=== PATIENT | female | born 1930 | race Caucasian/White ===

== ENCOUNTER 2016-10-31 09:07 | Emergency (ER) | payer MEDICARE ==
--- NOTE | 2016-10-31 09:27 | ED.PDOC ---
History of Present Illness - General Chief Complaint: Syncope/Near Syncope Stated Complaint: Passed out while cooking breakfast Time Seen by Provider: 10/31/16 09:17 Source: patient, family, EMS Exam Limitations: no limitations - History of Present Illness Initial Comments: Patient was at home cooking breakfast when she just passed out. She fell backwards and hit her head on the floor. Family reports she was unconscious for about 2 minutes. She woke up suddenly and has been acting like herself since. Despite patient reporting generalized joint pain for the past 2-3 days she denies any pain or injury from fall. She and family report she has not been feeling well or eating well for the past few days. Mostly with complaints of joint pain. EMS reports BP 110's while laying but dropped into the 70's when she sat up. Timing/Prior Episodes: remote history - She has passed out like this before with each of her strokes, she reports 3 prior strokes. Precipitating Factors: none Context: standing Episode Description: 2 minutes Loss of Consciousness: prolonged (minutes) Current Symptoms: back to normal, injury Allergies/Adverse Reactions: Allergies NO KNOWN ALLERGY Allergy (Verified 11/25/15 11:01) Home Medications: Ambulatory Orders Aspirin [Baby Aspirin] 81 mg PO QD 07/23/14 Fenofibrate [Tricor] 48 mg PO DAILY 07/23/14 Furosemide [Lasix] 20 mg PO PRN PRN 07/23/14 Levetiracetam [Keppra] 500 mg PO BEDTIME 07/23/14 Metoprolol Succinate [Metoprolol Succinate ER] 25 mg PO QAM #30 tab 07/23/14 Ramipril 2.5 mg PO QAM #30 cap 07/23/14 amLODIPine BESYLATE [Norvasc] 5 mg PO DAILY 07/23/14 Buspirone HCl 10 mg PO DAILY 09/14/15 Cyanocobalamin [B-12] 2,500 mcg PO DAILY 09/14/15 Lubiprostone [Amitiza] 24 mcg PO BID 09/14/15 Mirtazapine [Remeron] 15 mg PO BEDTIME 09/14/15 Omeprazole 20 mg PO DAILY 09/14/15 Acetaminophen [Tylenol] 500 mg PO PRN 12/02/15 Albuterol Sulfate Nebs [Proventil Nebs] 2.5 mg INH PRN 12/02/15 Alprazolam [Alprazolam Odt] 0.25 mg PO PRN 12/02/15 Calcium Carbonate 600 mg PO DAILY 12/02/15 Clonidine HCl 0.1 mg PO PRN 12/02/15 Desvenlafaxine Succinate [Pristiq] 50 mg PO DAILY 12/02/15 HYDROcodone 10MG/APAP 325MG [[place] 10/325] 1 tab PO PRN 12/02/15 HYDROcodone 5MG/APAP 325MG [[place] 5/325] 1 tab PO PRN 12/02/15 Loratadine [Claritin] 10 mg PO DAILY 12/02/15 Meclizine HCl [Motion Sickness Relief] 25 mg PO PRN 12/02/15 Lthrwddf-Sfkzklairu-Zhlwzzxzz [Neosporin] 1 applic TOP PRN 12/02/15 [place]-3 Fatty Acids [Fish Oil] 1,000 mg PO DAILY 12/02/15 Potassium Chloride [Micro-K] 10 meq PO DAILY 12/02/15 Promethazine HCl 25 mg PO PRN 12/02/15 Promethazine W/Codeine [Promethazine/Codeine 6.25-10 mg/5Ml] 1 syp PO PRN Tramadol HCl 50 mg PO PRN 12/02/15 Review of Systems - Review of Systems Constitutional: States: malaise. Denies: chills, diaphoresis, fever, weakness EENTM: States: no symptoms reported Respiratory: States: no symptoms reported Cardiology: States: no symptoms reported Gastrointestinal/Abdominal: States: no symptoms reported Genitourinary: States: no symptoms reported Musculoskeletal: States: joint pain, neck pain. Denies: back pain, muscle pain , muscle stiffness Skin: States: no symptoms reported Neurological: States: no symptoms reported. Denies: headache, pre-existing deficit, tingling Endocrine: States: no symptoms reported Hematologic/Lymphatic: States: no symptoms reported Past Medical History (General) - Patient Medical History Hx Seizures: No Hx Stroke: Yes Hx Dementia: No Hx Asthma: No Hx of COPD: No Hx Cardiac Disorders: Yes Hx Congestive Heart Failure: No Hx Pacemaker: No Hx Hypertension: Yes Hx Thyroid Disease: No Hx Diabetes: Yes - FSBS 94 Hx Gastroesophageal Reflux: Yes Hx Renal Disease: No Hx Cancer: No Hx of HIV: No Hx Hepatitis C: No Hx MRSA: No - Vaccination History Hx Tetanus, Diphtheria Vaccination: Yes Hx Influenza Vaccination: No Hx Pneumococcal Vaccination: No - Social History Hx Tobacco Use: No Hx Chewing Tobacco Use: No Hx Alcohol Use: No Hx Substance Use: No Hx Substance Use Treatment: No Hx Depression: No Hx Physical Abuse: No Hx Emotional Abuse: No Hx Suspected Abuse: No - Female History Patient : No Physical Exam - Physical Exam General Appearance: Alert, Comfortable, Frail, No apparent distress Neck: non-tender, full range of motion, supple, normal inspection Cardiovascular/Respiratory: regular rate, rhythm, no M/R/G, normal peripheral pulses, no JVD, normal breath sounds, no respiratory distress Gastrointestinal/Abdominal: normal bowel sounds, non tender, soft, no organomegaly, no pulsatile mass Extremity: normal range of motion, non-tender, normal inspection 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 Awaiting urinalysis. 10/31/16 13:[address] and lab results with patient and her sons. Will d/o home with instructions to drink 2 boosts/day and drink 2L of water/day - Results/Orders Results/Orders: Laboratory Last Values WBC 8.8 K/mm3 (4.8-10.8) 10/31/16 09:33 RBC 3.47 M/mm3 (4.20-5.40) L 10/31/16 09:33 Hgb 9.7 gm/dL (12.0-16.0) L 10/31/16 09:33 Hct 30.1 % (36.0-47.0) L 10/31/16 09:33 MCV 86.7 fl (81.0-99.0) 10/31/16 09:33 MCH 27.9 pg (27.0-31.0) 10/31/16 09:33 MCHC 32.3 g/dL (33.0-37.0) L 10/31/16 09:33 RDW 13.1 % (11.5-14.5) 10/31/16 09:33 Plt Count 280 K/mm3 (130-400) 10/31/16 09:33 MPV 7.7 fl (7.40-10.4) 10/31/16 09:33 Absolute Neuts (auto) 6.40 K/uL (1.8-6.8) 10/31/16 09:33 Absolute Lymphs (auto) 1.40 K/uL (1.0-3.4) 10/31/16 09:33 Absolute Monos (auto) 0.80 K/uL (0.2-0.8) 10/31/16 09:33 Absolute Eos (auto) 0.10 K/uL (0.0-0.4) 10/31/16 09:33 Absolute Basos (auto) 0.10 K/uL (0.0-0.1) 10/31/16 09:33 Neutrophils % 72.8 % (42.0-78.0) 10/31/16 09:33 Lymphocytes % 16.4 % (20.0-50.0) L 10/31/16 09:33 Monocytes % 9.3 % (2.0-9.0) H 10/31/16 09:33 Eosinophils % 0.8 % (1.0-5.0) L 10/31/16 09:33 Basophils % 0.7 % (0.0-2.0) 10/31/16 09:33 Sodium 135 mmol/L (135-145) 10/31/16 09:33 Potassium 4.3 mmol/L (3.6-5.0) 10/31/16 09:33 Chloride 109 mmol/L (101-111) 10/31/16 09:33 Carbon Dioxide 20 mmol/L (21-31) L 10/31/16 09:33 Anion Gap 10.3 (12-18) L 10/31/16 09:33 BUN 72 mg/dL (7-18) H 10/31/16 09:33 Creatinine 1.78 mg/dL (0.6-1.3) H 10/31/16 09:33 BUN/Creatinine Ratio 40.4 (10-20) H 10/31/16 09:33 Random Glucose 130 mg/dL (70-105) H 10/31/16 09:33 Serum Osmolality 293.0 mOsm/L (275-295) 10/31/16 09:33 Calcium 8.8 mg/dL (8.4-10.2) 01/15/17 09:33 Total Bilirubin 0.4 mg/dL (0.2-1.0) 10/31/16 09:33 AST 15 IU/L (10-42) 10/31/16 09:33 ALT 9 IU/L (10-60) L 10/31/16 09:33 Alkaline Phosphatase 61 IU/L (42-121) 10/31/16 09:33 Creatine Kinase 24 IU/L (26-140) L 10/31/16 09:33 CK-MB (CK-2) 1.2 ng/mL (0.0-4.4) 10/31/16 09:33 Troponin I < 0.02 ng/mL (0.01-0.05) 10/31/16 09:33 Serum Total Protein 6.6 gm/dL (6.4-8.2) 10/31/16 09:33 Albumin 2.8 g/dl (3.2-5.5) L 10/31/16 09:33 Globulin 3.8 gm/dL (2.3-3.5) H 10/31/16 09:33 Albumin/Globulin Ratio 0.7 (1.1-1.9) L 10/31/16 09:33 UA - +protien and trace blood, o/w nl - EKG/XRAY/CT CT Ordered: Yes - No acute changes per radiologist Departure - Departure Clinical Impression: Syncope and collapse, Dehydration, Fall at home Time of Disposition: 13:15 Disposition: Discharge to Home or Self Care Condition: Good Departure Forms: ED Discharge - Pt. Copy, Patient Portal Self Enrollment Instructions: DI for Dehydration -- Adult, DI for Syncope in Adults (Fainting) Diet: resume usual diet Activity: ambulate only with walker Referrals: Marcel Aden MD [Primary Care Provider] - 1-2 Days Home Medications: Ambulatory Orders Aspirin [Baby Aspirin] 81 mg PO QD 07/23/14 Fenofibrate [Tricor] 48 mg PO DAILY 07/23/14 Furosemide [Lasix] 20 mg PO PRN PRN 07/23/14 Levetiracetam [Keppra] 500 mg PO BEDTIME 07/23/14 Metoprolol Succinate [Metoprolol Succinate ER] 25 mg PO QAM #30 tab 07/23/14 Ramipril 2.5 mg PO QAM #30 cap 07/23/14 amLODIPine BESYLATE [Norvasc] 5 mg PO DAILY 07/23/14 Buspirone HCl 10 mg PO DAILY 09/14/15 Cyanocobalamin [B-12] 2,500 mcg PO DAILY 09/14/15 Lubiprostone [Amitiza] 24 mcg PO BID 09/14/15 Mirtazapine [Remeron] 15 mg PO BEDTIME 09/14/15 Omeprazole 20 mg PO DAILY 09/14/15 Acetaminophen [Tylenol] 500 mg PO PRN 12/02/15 Albuterol Sulfate Nebs [Proventil Nebs] 2.5 mg INH PRN 12/02/15 Alprazolam [Alprazolam Odt] 0.25 mg PO PRN 12/02/15 Calcium Carbonate 600 mg PO DAILY 12/02/15 Clonidine HCl 0.1 mg PO PRN 12/02/15 Desvenlafaxine Succinate [Pristiq] 50 mg PO DAILY 12/02/15 HYDROcodone 10MG/APAP 325MG [[place] 10/325] 1 tab PO PRN 12/02/15 HYDROcodone 5MG/APAP 325MG [[place] 5/325] 1 tab PO PRN 12/02/15 Loratadine [Claritin] 10 mg PO DAILY 12/02/15 Meclizine HCl [Motion Sickness Relief] 25 mg PO PRN 12/02/15 Hkxyqltb-Woygwmqrqk-Okwklbjae [Neosporin] 1 applic TOP PRN 12/02/15 [place]-3 Fatty Acids [Fish Oil] 1,000 mg PO DAILY 12/02/15 Potassium Chloride [Micro-K] 10 meq PO DAILY 12/02/15 Promethazine HCl 25 mg PO PRN 12/02/15 Promethazine W/Codeine [Promethazine/Codeine 6.25-10 mg/5Ml] 1 syp PO PRN Tramadol HCl 50 mg PO PRN 12/02/15 Additional Instructions: Increase fluid and food intake. 2 boost or Ensure/day. 2L of water/day.
[2016-10-31 09:30] VITALS: TEMP 97.5
--- NOTE | 2016-10-31 09:57 | CT ---
EXAM DESCRIPTION: CT HEAD WITHOUT INTRAVENOUS CONTRAST CLINICAL HISTORY: Fall and trauma to the head. COMPARISON: . TECHNIQUE: CT of the head was performed without intravenous contrast. FINDINGS: There is no intra or extra-axial hemorrhage,fluid collection, midline shift, mass effect or acute focal infarct. There is prominence of the sylvian fissures and the cortical sulci reflecting age related volume loss. There is periventricular and deep white matter low attenuation, most likely related to small vessel white matter ischemic disease. Acute on chronic ischemic changes are better assessed on an MRI, if such a suspicion exists clinically. The ventricular system is normal for patient's age, position and configuration. Benign intracranial vascular calcifications are seen. Visualized mastoid air cells are unremarkable. The paranasal sinuses show changes of mild chronic sinusitis. There is no visualization of calvarial or skull base fractures. IMPRESSION: There are no acute intracranial findings. Chronic and age related involutional changes are seen. Electronically signed by: Aaron Bueno MD 10/31/2016 09:55
[2016-10-31] MEDS ORDERED: SODIUM CHLORIDE 0.9% 1000ML 1,000 ML ONE (10:50)
[2016-10-31] MEDS ORDERED: SODIUM CHLORIDE 0.9% 1000ML 1,000 ML IVS ONE ×2 (10:50→10:51)
[2016-10-31 12:42] VITALS: O2SAT 95
[2016-10-31 13:26] VITALS: BP 130/92
== END 2016-10-31 13:26 | disposition home or self-care (01) ==
LOC: ER 09:07
DX: E86.0 Dehydration (principal); R55 Syncope and collapse; M25.50 Pain in unspecified joint; I10 Essential (primary) hypertension; E11.9 Type 2 diabetes mellitus without complications; K21.9 Gastro-esophageal reflux disease without esophagitis; Z86.73 Personal history of transient ischemic attack (TIA), and cerebral infarction without residual deficits; Z79.82 Long term (current) use of aspirin; Z79.899 Other long term (current) drug therapy
CPT/HCPCS: 36415; 70450; 80053; 81001; 82550; 82553; 84484; 85025; J7030

== ENCOUNTER → 2017-01-04 | Outpatient (CLI) | payer MEDICARE | LOC: GMAB 11:25 | PROVIDERS: ATTEND Family Medicine | DX: M15.0 Primary generalized (osteo)arthritis (principal); D50.8 Other iron deficiency anemias; E53.8 Deficiency of other specified B group vitamins ==

== ENCOUNTER → 2017-01-10 | Outpatient (CLI) | payer MEDICARE ==
--- NOTE | 2017-01-10 12:52 | CT ---
EXAM DESCRIPTION: Cervical Spine CLINICAL HISTORY: 86 years Female, CERVICAL RADICULOPATHY COMPARISON: None. TECHNIQUE: Volumetric noncontrasted CT of the cervical spine was performed. The data was reformatted for interpretation. FINDINGS: The dens is unremarkable. AP alignment is unremarkable. There is degenerative disc disease at all levels. No vertebral body height in the malady. Extensive vascular calcifications noted within the bilateral carotid arteries. There is medialization of the right carotid artery. It is located posterior to the oropharynx. C2-C3: Facet degeneration noted. No spinal canal or neuroforaminal narrowing. C3-C4: There is bilateral facet degeneration and uncovertebral joint hypertrophy. There is moderate right and mild left neuroforaminal narrowing. The midline diameter of the spinal canal is adequate measuring 1 cm in diameter. C4-5: Moderate left and mild right neuroforaminal narrowing from facet and uncovertebral joint hypertrophy. Broad-based posterior disc osteophyte complex noted. The midline diameter of the spinal canal is mildly narrowed at 9 mm. C5-6: Severe bilateral neuroforaminal narrowing. Broad-based posterior disc osteophyte complex noted. The midline diameter of the spinal canal is reduced to 8.4 mm. C6-C7: Moderate bilateral neuroforaminal narrowing, left greater than right. Broad-based posterior disc osteophyte complex. The midline diameter of the spinal canal is adequate at 1 cm. C7-T1: No spinal canal or neuroforaminal narrowing. IMPRESSION: The level degenerative change with mild spinal canal narrowing at C4-5 and C5-6. Borderline normal spinal canal is at C3-4 and C6-7. Multilevel neuroforaminal narrowing noted is pronounced bilaterally at C5-6. This could result in bilateral C6 radiculopathies if the patient is symptomatic. There is atherosclerotic disease noted within bilateral carotid bulbs. Electronically signed by: Brendan Shoemaker MD 01/10/2017 12:51 PM CDT
== END | disposition home or self-care (01) ==
LOC: CT 09:50
PROVIDERS: ATTEND Family Medicine
DX: M50.13 Cervical disc disorder with radiculopathy, cervicothoracic region (principal)

== ENCOUNTER → 2017-02-08 | Outpatient (CLI) | payer MEDICARE | LOC: BFHH 16:48 | PROVIDERS: ATTEND Internal Medicine Medical Oncology | DX: I13.0 Hypertensive heart and chronic kidney disease with heart failure and stage 1 through stage 4 chronic kidney disease, or unspecified chronic kidney disease (principal); E11.22 Type 2 diabetes mellitus with diabetic chronic kidney disease; N18.3 Chronic kidney disease, stage 3 (moderate) ==

== ENCOUNTER → 2017-03-24 | Outpatient (CLI) | payer MEDICARE | END | disposition home or self-care (01) | LOC: BFHH 14:08 | PROVIDERS: ATTEND Family Medicine | DX: R35.0 Frequency of micturition (principal); R30.0 Dysuria ==

== ENCOUNTER → 2017-04-07 | Outpatient (CLI) | payer MEDICARE | END | disposition home or self-care (01) | LOC: GMAB 16:36 | PROVIDERS: ATTEND Family Medicine | DX: D50.9 Iron deficiency anemia, unspecified (principal); M79.1 Myalgia ==

== ENCOUNTER → 2017-05-05 | Outpatient (CLI) | payer MEDICARE | LOC: GMAB 17:33 | PROVIDERS: ATTEND Family Medicine | DX: M79.1 Myalgia (principal) ==

== ENCOUNTER → 2017-07-07 | Outpatient (CLI) | payer MEDICARE | END | disposition home or self-care (01) | LOC: GMAB 15:23 | PROVIDERS: ATTEND Family Medicine | DX: E11.22 Type 2 diabetes mellitus with diabetic chronic kidney disease (principal); M35.3 Polymyalgia rheumatica; N18.3 Chronic kidney disease, stage 3 (moderate) ==

== ENCOUNTER → 2017-07-12 | Outpatient (CLI) | payer MEDICARE | END | disposition home or self-care (01) | LOC: GMAB 16:34 | PROVIDERS: ATTEND Family Medicine | DX: M35.3 Polymyalgia rheumatica (principal); E11.65 Type 2 diabetes mellitus with hyperglycemia ==

== ENCOUNTER → 2017-11-24 | Outpatient (CLI) | payer MEDICARE | LOC: GMAB 19:18 | PROVIDERS: ATTEND Family Medicine | DX: D64.9 Anemia, unspecified (principal); E53.8 Deficiency of other specified B group vitamins; M35.3 Polymyalgia rheumatica ==

== ENCOUNTER 2017-12-05 20:38 | Inpatient (IN) | payer MEDICARE ==
--- NOTE | 2017-12-05 21:09 | ED.PDOC ---
History of Present Illness - General Chief Complaint: Cardiovascular Problem Stated Complaint: leg swelling Time Seen by Provider: 12/05/17 20:59 Source: patient, family Exam Limitations: no limitations - History of Present Illness Timing/Duration: other - 2-3 days Severity: moderate Improving Factors: nothing Associated Symptoms: other - pain in L leg Allergies/Adverse Reactions: Allergies NO KNOWN ALLERGY Allergy (Verified 11/25/15 11:01) Home Medications: Ambulatory Orders Aspirin [Baby Aspirin] 81 mg PO QD 07/23/14 Fenofibrate [Tricor] 48 mg PO DAILY 07/23/14 Furosemide [Lasix] 20 mg PO PRN PRN 07/23/14 Levetiracetam [Keppra] 500 mg PO BEDTIME 07/23/14 Metoprolol Succinate [Metoprolol Succinate ER] 25 mg PO QAM #30 tab 07/23/14 Ramipril 2.5 mg PO QAM #30 cap 07/23/14 amLODIPine BESYLATE [Norvasc] 5 mg PO DAILY 07/23/14 Buspirone HCl 10 mg PO DAILY 09/14/15 Cyanocobalamin [B-12] 2,500 mcg PO DAILY 09/14/15 Lubiprostone [Amitiza] 24 mcg PO BID 09/14/15 Mirtazapine [Remeron] 15 mg PO BEDTIME 09/14/15 Omeprazole 20 mg PO DAILY 09/14/15 Acetaminophen [Tylenol] 500 mg PO PRN 12/02/15 Albuterol Sulfate Nebs [Proventil Nebs] 2.5 mg INH PRN 12/02/15 Alprazolam [Alprazolam Odt] 0.25 mg PO PRN 12/02/15 Calcium Carbonate 600 mg PO DAILY 12/02/15 Clonidine HCl 0.1 mg PO PRN 12/02/15 Desvenlafaxine Succinate [Pristiq] 50 mg PO DAILY 12/02/15 HYDROcodone 10MG/APAP 325MG [[place] 10/325] 1 tab PO PRN 12/02/15 HYDROcodone 5MG/APAP 325MG [[place] 5/325] 1 tab PO PRN 12/02/15 Loratadine [Claritin] 10 mg PO DAILY 12/02/15 Meclizine HCl [Motion Sickness Relief] 25 mg PO PRN 12/02/15 Oljuyend-Krplbbrjtz-Lduisbltb [Neosporin] 1 applic TOP PRN 12/02/15 [place]-3 Fatty Acids [Fish Oil] 1,000 mg PO DAILY 12/02/15 Potassium Chloride [Micro-K] 10 meq PO DAILY 12/02/15 Promethazine HCl 25 mg PO PRN 12/02/15 Promethazine W/Codeine [Promethazine/Codeine 6.25-10 mg/5Ml] 1 syp PO PRN Tramadol HCl 50 mg PO PRN 12/02/15 Review of Systems - Review of Systems Constitutional: Denies: chills, fever, weakness EENTM: Denies: nose congestion, throat pain Respiratory: Denies: cough, orthopnea, short of breath Cardiology: States: edema. Denies: chest pain, syncope Gastrointestinal/Abdominal: Denies: abdominal pain, nausea, vomiting Genitourinary: Denies: dysuria Musculoskeletal: States: joint pain, muscle pain Skin: States: change in color - L leg is red Neurological: Denies: headache, numbness, paresthesia Endocrine: Denies: no symptoms reported Hematologic/Lymphatic: Denies: no symptoms reported Past Medical History (General) - Patient Medical History Hx Seizures: No Hx Stroke: Yes Hx Dementia: No Hx Asthma: No Hx of COPD: No Hx Cardiac Disorders: Yes Hx Congestive Heart Failure: No Hx Pacemaker: Yes Hx Hypertension: Yes Hx Thyroid Disease: No Hx Diabetes: Yes - years ago Hx Gastroesophageal Reflux: Yes Hx Renal Disease: No Hx Cancer: No Hx of HIV: No Hx Hepatitis C: No Hx MRSA: No Surgical History: cholecystectomy, Hysterectomy - Vaccination History Hx Tetanus, Diphtheria Vaccination: Yes Hx Influenza Vaccination: Yes Hx Pneumococcal Vaccination: No - Social History Hx Tobacco Use: No Hx Chewing Tobacco Use: No Hx Alcohol Use: No Hx Substance Use: No Hx Substance Use Treatment: No Hx Depression: No Hx Physical Abuse: No Hx Emotional Abuse: No Hx Suspected Abuse: No - Female History Patient is a Female of Child Bearing Age (10 -59 yrs old): No Patient : No - Triage Comment ED Triage Comment: redness, tendernous to left leg. Family Medical History - Family History Mother Living Status: Hx Family Cancer: Yes Physical Exam - Physical Exam General Appearance: Alert, Other - Mild distress Eye Exam: bilateral normal Ears, Nose, Throat: normal ENT inspection, normal pharynx Neck: full range of motion, normal inspection Respiratory: normal breath sounds, no respiratory distress Cardiovascular/Chest: regular rate, rhythm Gastrointestinal/Abdominal: normal bowel sounds, non tender, soft Extremity: swelling - L leg has 3+ edema that extends to distal thigh, red and tender with increased heat Skin Exam: warm/dry Departure - Departure Clinical Impression: Cellulitis Qualifiers: Site of cellulitis: extremity Site of cellulitis of extremity: lower extremity Laterality: left Qualified Code(s): L03.116 - Cellulitis of left lower limb Anemia Qualifiers: Anemia type: unspecified type Qualified Code(s): D64.9 - Anemia, unspecified Disposition: Admit Patient Condition: Fair Departure Forms: ED Discharge - Pt. Copy, Patient Portal Self Enrollment Instructions: DI for Chest Pain Referrals: Marcel Aden MD [Primary Care Provider] - 1-2 Weeks Home Medications: Ambulatory Orders Aspirin [Baby Aspirin] 81 mg PO QD 07/23/14 Fenofibrate [Tricor] 48 mg PO DAILY 07/23/14 Furosemide [Lasix] 20 mg PO PRN PRN 07/23/14 Levetiracetam [Keppra] 500 mg PO BEDTIME 07/23/14 Metoprolol Succinate [Metoprolol Succinate ER] 25 mg PO QAM #30 tab 07/23/14 Ramipril 2.5 mg PO QAM #30 cap 07/23/14 amLODIPine BESYLATE [Norvasc] 5 mg PO DAILY 07/23/14 Buspirone HCl 10 mg PO DAILY 09/14/15 Cyanocobalamin [B-12] 2,500 mcg PO DAILY 09/14/15 Lubiprostone [Amitiza] 24 mcg PO BID 09/14/15 Mirtazapine [Remeron] 15 mg PO BEDTIME 09/14/15 Omeprazole 20 mg PO DAILY 09/14/15 Acetaminophen [Tylenol] 500 mg PO PRN 12/02/15 Albuterol Sulfate Nebs [Proventil Nebs] 2.5 mg INH PRN 12/02/15 Alprazolam [Alprazolam Odt] 0.25 mg PO PRN 12/02/15 Calcium Carbonate 600 mg PO DAILY 12/02/15 Clonidine HCl 0.1 mg PO PRN 12/02/15 Desvenlafaxine Succinate [Pristiq] 50 mg PO DAILY 12/02/15 HYDROcodone 10MG/APAP 325MG [[place] 10/325] 1 tab PO PRN 12/02/15 HYDROcodone 5MG/APAP 325MG [[place] 5/325] 1 tab PO PRN 12/02/15 Loratadine [Claritin] 10 mg PO DAILY 12/02/15 Meclizine HCl [Motion Sickness Relief] 25 mg PO PRN 12/02/15 Sitjxghd-Efllzmpbea-Pgvgtqkvz [Neosporin] 1 applic TOP PRN 12/02/15 [place]-3 Fatty Acids [Fish Oil] 1,000 mg PO DAILY 12/02/15 Potassium Chloride [Micro-K] 10 meq PO DAILY 12/02/15 Promethazine HCl 25 mg PO PRN 12/02/15 Promethazine W/Codeine [Promethazine/Codeine 6.25-10 mg/5Ml] 1 syp PO PRN Tramadol HCl 50 mg PO PRN 12/02/15
--- NOTE | 2017-12-05 22:04 | US ---
EXAM DESCRIPTION: Venous,Lower Extremity LT CLINICAL HISTORY: swollen L Leg COMPARISON: None. TECHNIQUE: Grayscale, color Doppler, and spectral Doppler imaging of the lower extremity venous system. FINDINGS: Normal compressibility and flow identified in the left common femoral, superficial femoral, popliteal, and proximal calf veins. No echogenic thrombus identified. No soft tissue abnormalities. Left phasicity in the common femoral veins. Edema in the subcutaneous soft tissues. IMPRESSION: No evidence of left lower extremity DVT. Electronically signed by: Pradeep Christiansen 12/05/2017 10:03 PM DECORATOR HAND
[2017-12-05] MEDS ORDERED: VANCOMYCIN HCL INJ 1,000 MG in SODIUM CHLORIDE 0.9% 250ML 250 ML IVPB ONE (22:09)
[2017-12-05] MEDS ORDERED: SODIUM CHLORIDE 0.9% 250ML 250 ML ONE (22:13)
[2017-12-05] MEDS ORDERED: VANCOMYCIN HCL INJ 1,000 MG VIAL IVPB ONE (22:13)
[2017-12-05] MEDS ORDERED: LEVALBUTEROL NEBS 1.25 MG/3 ML VIAL INH PRN (23:04)
[2017-12-05] MEDS ORDERED: SODIUM CHLORIDE 0.9% (FLUSH) 10 ML SYG IV PRN (23:04)
[2017-12-05] MEDS ORDERED: MAGNESIUM HYDROXIDE 30 ML UD PO PRN (23:12)
[2017-12-05] MEDS ORDERED: ENOXAPARIN SODIUM 40 MG/0.4 ML SYG SUBCU SCH (23:30)
[2017-12-05] MEDS ORDERED: VANCOMYCIN PER PHARMACY INJ SCH (23:30)
[2017-12-05] MEDS ORDERED: amLODIPine BESYLATE 5 MG TAB PO SCH (23:30)
[2017-12-05] MEDS: IPRATROPIUM/ALBUTEROL 3 ML VIAL INH SCH (23:53)
--- NOTE | 2017-12-06 00:01 | RAD ---
EXAM DESCRIPTION: Chest,1 View CLINICAL HISTORY: leukocytosos COMPARISON: 09/14/2015 FINDINGS: Single frontal view of the chest. Left-sided pacemaker. Cardiomegaly. Atherosclerotic calcification aortic arch. Pulmonary vascular congestion. No consolidation, pneumothorax, or pleural effusion. No acute osseous abnormalities. Upper abdominal soft tissues are unremarkable. IMPRESSION: 1. Cardiomegaly with pulmonary vascular congestion. Electronically signed by: Pradeep Christiansen 12/06/2017 12:00 AM [facility]
[2017-12-06] MEDS: busPIRone HCL 5 MG TAB PO SCH ×2 (00:14→20:31)
[2017-12-06] MEDS: levETIRAcetam 250 MG TAB PO SCH ×2 (00:15→20:31)
[2017-12-06] MEDS: IV SET AND CAP CHANGE INJ INJ SCH (00:15)
[2017-12-06] MEDS: HYDROcodone 7.5MG/APAP 325MG 1 EA TAB PO PRN ×3 (00:17→18:20)
[2017-12-06] MEDS: SODIUM CHLORIDE 0.9% 1000ML 1,000 ML IVS PRN ×2 (00:19→20:21)
[2017-12-06] MEDS: OMEPRAZOLE CAP 20 MG CAP PO SCH (06:24)
[2017-12-06] MEDS ORDERED: ACETAMINOPHEN 325 MG TAB PO ONE (07:04)
[2017-12-06] MEDS ORDERED: diphenhydrAMINE HCL 25 MG CAP PO ONE (07:06)
[2017-12-06] MEDS: IPRATROPIUM/ALBUTEROL 3 ML VIAL INH SCH (08:28)
[2017-12-06] MEDS ORDERED: RAMIPRIL 2.5 MG CAP PO SCH ×2 (09:00→11:38)
[2017-12-06] MEDS ORDERED: SODIUM CHLORIDE 0.9% 500ML 500 ML ONE (09:58)
[2017-12-06] MEDS ORDERED: diphenhydrAMINE HCL 25 MG CAP ONE (10:02)
[2017-12-06] MEDS: ASPIRIN (CHEWABLE) 81 MG TAB PO SCH (10:10)
[2017-12-06] MEDS: CHLORHEXIDINE GLUC 4% 15ML 45 ML, WATER FOR IRRIGATION 1,000 ML TOP SCH ×4 (11:00→20:32)
[2017-12-06] MEDS ORDERED: traMADol HCL 50 MG TAB PO PRN (11:29)
[2017-12-06] MEDS ORDERED: ASPIRIN (CHEWABLE) 81 MG TAB PO SCH (11:30)
--- NOTE | 2017-12-06 11:32 | HP ---
HISTORY OF PRESENT ILLNESS: This 87-year-old, white female is admitted to the hospital from the Emergency Room because of significant pain, swelling, erythema and apparent infection in the left lower extremity. She has had intermittent swelling in her legs in the past for which she takes an occasional Lasix to assist with that edema state. Her problem this time started and worsened over the last three or four days starting shortly after being bitten by one of her cats while feeding the cat. It has done this before. The bite was on the dorsum of her left foot. Her left lower extremity including the calf up to the thigh is swollen, erythematous, very tender especially in the though region to palpation. There is no drainage and the site of the cat bite appears to be fairly well closed over and healed with eschar with no drainage noted. The patient is followed closely by Dr. Aden in the clinic. She is on multiple medications, may of which have been adjusted and required specialized review in order to get to the basics of her current medication program. The patient is admitted to the hospital because of a white count of 22,000 with associated significant infection and inability to walk on it because of pain within the tissues especially of her thigh. She was started initially in the Emergency Room on vancomycin anticipating a staph or strep infection. It was only at the time of the acquisition of the history of present illness that it was determined that there could be an underlying cat bite element which has necessitated the change to Unasyn medication dosings. PAST SURGICAL HISTORY: 1. Appendectomy. 2. Gallbladder removal. 3. Uterus removal. CURRENT MEDICATIONS: Please refer to nursing notes for a list of verified medicines. ALLERGIES: NONE KNOWN. FAMILY HISTORY: Positive for diabetes, coronary artery disease, lung disease, cancer, strokes. SOCIAL HISTORY: The patient currently lives with her son and has never smoked or drank alcoholic beverages. 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 REVIEW OF SYSTEMS: GENERAL: Weight is stable. No significant fever, but she has been feeling somewhat chilled recently. HEENT: Hearing and vision appear to be fairly unchanged though her vision is decreased from where it used to be. She has had a history of polymyalgia rheumatica in the past for which she takes prednisone. LUNGS: Occasional shortness of breath upon exertion. CARDIOVASCULAR: No palpitations or chest pains. GASTROINTESTINAL: Appetite is very picky and she admits to not eating very well. Diminished albumin level is indicative of this. No blood in the stools. GENITOURINARY: No dysuria. EXTREMITIES: Significant left lower extremity edema with erythema possibly related to an infectious condition with cellulitis from a cat bite. NEUROLOGIC: No focal neurological deficits. The patient is having difficulty ambulating because of pain in the left thigh and leg. PHYSICAL EXAMINATION: VITAL SIGNS: Afebrile. Blood pressure 129/36. Pulse oximetry 98% on room air. Weight 61.7 kg on the bed scale. GENERAL: The patient is fairly alert and awake. She is complaining of a lot of neck pain and leg pain when she puts weight on it. HEENT: Unremarkable. NECK: Supple. LUNGS: Diminished breath sounds, but otherwise clear. CARDIOVASCULAR: Heart tones are regular. ABDOMEN: Slightly distended, fairly good and active bowel tones. No organomegaly or masses noted. EXTREMITIES: Left leg is edematous and swollen to extend up to the groin with increased tenderness of the thigh compared to the calf. Ultrasound of the lower extremity failed to show any significant DVT presence. Somewhat diminished range of motion and she has been told that her knees have lost a lot of their cartilage, thereby a lot of arthritic symptoms. NEUROLOGIC: No focal neurological deficits other than weakness. She is otherwise awake and alert, cooperative and communicative. LABORATORY: White count is elevated at 22,000 with 96% neutrophils, hemoglobin 7.5 with a normocytic/normochromic presentation. INR 1.36. Chemistries show sodium 131, potassium 4.2, BUN significantly elevated over baseline at 57, creatinine 2, glucose 203. Liver enzymes normal. Beta natriuretic peptide 573. Albumin 2.4. Urinalysis pending. Blood cultures obtained. Lower extremity ultrasound exam shows no evidence of left lower extremity DVT at this time. Chest x-ray does show enlarged heart with some pulmonary vascular congestion component. ASSESSMENT: 1. Significant swelling with erythema and pain, left lower extremity, suggesting cellulitis. No evidence of a deep venous thrombosis at this time. Possible cat bite infection, left foot with extension up the leg, requiring parenteral therapy. 2. Significant leukocytosis with left shift suggesting significant body reaction to the underlying infection. 3. History of hypertension. 4. Gastroesophageal reflux disease. 5. History of polymyalgia rheumatica on prednisone, low dose. 6. Anemia with hemoglobin only 7.5 with a normocytic/normochromic pattern, possibly related to the underlying renal failure. 7. Hypoalbuminemia related to poor nutrition. 8. Chronic renal insufficiency with acute exacerbation. 9. Hyperglycemia. PLAN: The patient is admitted to the hospital to have the left lower extremity elevated. We will cleanse with diluted Hibiclens. Started on vancomycin in the Emergency Room per pharmacy protocol. C-reactive protein pending. Home medications to be approached. Continue on SCDs and Lovenox prophylaxis. Reevaluation in the morning. #[id number] [facility]
--- NOTE | 2017-12-06 13:24 | PN ---
DATE: 12/06/17 SUBJECTIVE: The patient is resting with increased neck pain primarily because she has been sleeping with her head leaning precariously off of a pillow. She is otherwise awake and alert. Discussed condition with family who are present. Significant input regarding the cat bite on her left foot. Possibility of cat bite infection will require ongoing outpatient therapy when stable and in the meantime, we will stop the vancomycin and switch to Unasyn 1.5 gram q.12h. per renal dosing because of that possibility. OBJECTIVE: VITAL SIGNS: Afebrile. Blood pressure 138/85. Pulse oximetry 93% on room air. LUNGS: Clear. HEART: Regular. ABDOMEN: Soft. LABORATORY: Repeat hemoglobin is down to 7 with white count down to 18,800 with 87% neutrophils. Chemistries show potassium 3.9, BUN still elevated at 56 while creatinine has dropped to 1.85. Glucose 127. C-reactive protein elevated at 12.4. Urinalysis shows proteinuria. Blood cultures are negative at this time. Blood culture pending. ASSESSMENT: 1. Significant swelling with erythema and pain, left lower extremity, suggesting cellulitis. No evidence of a deep venous thrombosis at this time. Possible cat bite infection, left foot with extension up the leg, requiring parenteral therapy. 2. Significant leukocytosis with left shift suggesting significant body reaction to the underlying infection. 3. History of hypertension. 4. Gastroesophageal reflux disease. 5. History of polymyalgia rheumatica on prednisone, low dose. 6. Anemia with hemoglobin only 7.5 with a normocytic/normochromic pattern, possibly related to the underlying renal failure. 7. Hypoalbuminemia related to poor nutrition. 8. Chronic renal insufficiency with acute exacerbation. 9. Hyperglycemia. 10. Worsening anemia, normocytic/normochromic, suggesting chronic illness, yet at the point where it is interfering with her ability to rehabilitate and to increase her activity level so that she will safely return home. Two units of packed red blood cells to be infused with followup afterward. PLAN: Continue with the transfusion and continue with Unasyn instead of the vancomycin. Continue close observation and treatment to respond as the patient responds to treatment. #[id number] [facility]
[2017-12-06] MEDS ORDERED: AMPICILLIN & SULBACTAM SODIUM 1.5 GM VIAL ONE ×2 (15:27→19:41)
[2017-12-06] MEDS ORDERED: SODIUM CHL 0.9% 50ML MIN-BAG+ 50 ML IVPB ONE ×2 (15:27→19:41)
[2017-12-06] MEDS: METOPROLOL SUCCINATE XL 25 MG TAB PO SCH (15:39)
[2017-12-06] MEDS: FUROSEMIDE 40 MG TAB PO SCH (15:49)
[2017-12-06] MEDS: predniSONE 5 MG TAB PO SCH (15:59)
[2017-12-06] MEDS: AMPICILLIN & SULBACTAM SODIUM 1.5 GM in SODIUM CHL 0.9% 50ML MIN-BAG+ 50 ML IVPB SCH ×2 (16:01→23:39)
--- NOTE | 2017-12-06 17:19 | US ---
EXAM DESCRIPTION: Carotid Duplex CLINICAL HISTORY: hx of carotid stenosis COMPARISON: None Available. TECHNIQUE: Carotid Doppler ultrasound FINDINGS: Right Submitted images show soft plaque and minimal calcified plaque in the right common carotid artery. Calcified plaque in the upper right CCA and right carotid bulb is prominent. Moderate plaque at the origin of the right internal and external carotid arteries. Area measurements suggest 50% narrowing of the right ICA and 68% narrowing of the right carotid bulb. The following flow velocities were obtained: Common carotid artery peak systolic flow velocity highest measurement is 118 cm/s. Internal carotid artery peak systolic flow velocity measurement is 77 cm/s. The right internal carotid to common carotid peak systolic flow velocity ratio 0.7 is normal. External carotid artery peak systolic flow velocity measures 92 cm/s. Flow in the right vertebral artery is recorded as retrograde. Left Submitted images show extensive arteriosclerotic calcified plaque in the left common carotid artery and at the left carotid bifurcation. Dense calcification of the left carotid bulb is seen. Positive color flow is seen within the vessels. Area calculation suggest 61% narrowing of the left ICA with 54% narrowing of the left carotid bulb. Left CCA in its mid cervical portion appears 80% narrowed. The following flow velocities were obtained: Common carotid artery peak systolic flow velocity measures 94.3 cm/s. Internal carotid artery peak systolic flow velocity measures 126 cm/s suggesting a 40-59% stenosis. The internal carotid to common carotid peak systolic flow velocity ratio 1.3 is within normal limits. External carotid artery peak systolic flow velocity 70 cm/s. Flow in the left vertebral artery is antegrade. IMPRESSION: Extensive arteriosclerotic plaque at the carotid bifurcations, left more than right. Flow velocity measurements indicate left ICA 40-59% stenosis. Retrograde flow in the right vertebral artery is recorded. Electronically signed by: Ricardo Hernandez MD 12/06/2017 5:18 PM [facility]
--- NOTE | 2017-12-06 19:04 | US ---
EXAM DESCRIPTION: Extremity,Lower LT Arteries CLINICAL HISTORY: cellulitis COMPARISON: None. FINDINGS: Duplex images of the arterial system of the left lower extremity were submitted. There is no elevation of the peak systolic velocity to suggest a hemodynamically significant stenosis. Dampened waveform is noted at the level of the distal dorsalis pedis artery which could be secondary to small vessel disease. There is subcutaneous edema. IMPRESSION: No elevation of the peak systolic velocity to suggest a hemodynamically significant stenosis. Dampened flow at the dorsalis pedis artery could be secondary to small vessel disease. Subcutaneous edema. Electronically signed by: Myles Arroyo MD 12/06/2017 7:03 PM [facility] Workstation: [id number]
[2017-12-06] MEDS ORDERED: ENOXAPARIN SODIUM 30 MG/0.3 ML SYG SUBCU ONE (19:42)
[2017-12-06] MEDS: ALPRAZolam 0.25 MG TAB PO SCH (20:31)
[2017-12-06] MEDS: ENOXAPARIN SODIUM 30 MG/0.3 ML SYG SUBCU SCH (23:38)
[2017-12-07] MEDS: OMEPRAZOLE CAP 20 MG CAP PO SCH (06:10)
[2017-12-07] MEDS: SODIUM CHLORIDE 0.9% 1000ML 1,000 ML IVS PRN ×2 (08:30→19:52)
[2017-12-07] MEDS: POTASSIUM CHLORIDE 10 MEQ TAB PO SCH (08:39)
[2017-12-07] MEDS: FUROSEMIDE 40 MG TAB PO SCH (08:40)
[2017-12-07] MEDS: ASPIRIN (CHEWABLE) 81 MG TAB PO SCH (08:40)
[2017-12-07] MEDS: RAMIPRIL 2.5 MG CAP PO SCH (08:40)
[2017-12-07] MEDS: METOPROLOL SUCCINATE XL 25 MG TAB PO SCH (08:40)
[2017-12-07] MEDS: predniSONE 5 MG TAB PO SCH (08:42)
[2017-12-07] MEDS: CHLORHEXIDINE GLUC 4% 15ML 45 ML, WATER FOR IRRIGATION 1,000 ML TOP SCH ×4 (08:44→20:41)
[2017-12-07] MEDS ORDERED: busPIRone HCL 5 MG TAB PO SCH (09:00)
[2017-12-07] MEDS ORDERED: AMPICILLIN & SULBACTAM SODIUM 1.5 GM VIAL ONE ×2 (11:31→19:18)
[2017-12-07] MEDS ORDERED: SODIUM CHL 0.9% 50ML MIN-BAG+ 50 ML IVPB ONE ×2 (11:32→19:19)
[2017-12-07] MEDS: AMPICILLIN & SULBACTAM SODIUM 1.5 GM in SODIUM CHL 0.9% 50ML MIN-BAG+ 50 ML IVPB SCH ×2 (11:35→23:30)
[2017-12-07] MEDS: HYDROcodone 5MG/APAP 325MG 1 EA TAB PO PRN ×2 (12:34→21:53)
[2017-12-07] MEDS: ALPRAZolam 0.25 MG TAB PO SCH (20:40)
[2017-12-07] MEDS: busPIRone HCL 5 MG TAB PO SCH (20:40)
[2017-12-07] MEDS: levETIRAcetam 250 MG TAB PO SCH (20:40)
--- NOTE | 2017-12-07 20:44 | PN ---
DATE: 12/07/17 SUPERVISING PHYSICIAN: Sandoval Bcuhanan M.D. SUBJECTIVE: The patient is resting in the bedside chair with her legs elevated. She notes that she still has some discomfort in the leg from her hip down but has had improvement since admission. She has been showing good response to treatment, currently on Unasyn. She remains afebrile. OBJECTIVE: VITAL SIGNS: Temperature 98.3, pulse 69, blood pressure 150/75, respirations 20, satting 96% on room air. I's and O's show a positive balance of 994 with 3995 in, 201 out. She has had 1 bowel movement. Weight is 62.7 kg. CHEST: Lungs are clear to auscultation. HEART: Regular rate and rhythm. ABDOMEN: Soft, non-tender. Positive bowel sounds. EXTREMITIES: Left lower extremity compared to the right shows some continued edema that is extending just below the knee now with some mild erythema. No obvious areas of drainage or consolidations or fluctuation. There is still notable tenderness over the entire leg. NEUROLOGIC: She is alert and oriented times three. LABORATORY: White count is down to 11,500, hemoglobin has improved to 10.8, hematocrit 32.9, platelet count 216,000. Differential shows a left shift. Chemistries show normal electrolytes with potassium 4.0, BUN 51, creatinine is down to 1.76, glucose 130, calcium 7.9. MICROBIOLOGY: Blood cultures remain negative at 24 hours. RADIOLOGY: She had a carotid artery and lower extremity Doppler study completed yesterday on admission which showed on the carotid artery study extensive atherosclerotic plaque in the carotid bifurcations on the left more than the right with flow velocities measurement indicating on the left ICA 40 to 59% stenosis with retro flow in the right vertebral artery. Lower extremity Doppler study of the arterial system showed no elevation of peak systolic velocity suggesting of extensive stenosis. There were dampened flow at the dorsalis pedis artery which could be secondary to small vessel disease with some cutaneous edema on the left. Again, the lower extremity Doppler study on the venous showed no evidence of lower left extremity DVT. ASSESSMENT: 1. Significant swelling with erythema and pain to the left lower extremity suggestive of cellulitis with no evidence of a deep venous thrombosis or arterial occlusion. Possible cellulitis is related to recent cat bite infection of the left foot with extension up the leg, requiring initiation of parenteral antibiotics showing good improvement with Unasyn. 2. Significant leukocytosis with left shift suggesting significant inflammatory reaction to an infectious process showing good response with initiation of parenteral antibiotics. 3. History of hypertension. 4. Gastroesophageal reflux disease. 5. History of polymyalgia rheumatica on prednisone, low dose. 6. Anemia with hemoglobin of 7.5 with a normocytic/normochromic pattern, possibly related to the underlying renal failure showing improvement with 2 units of packed red blood cells and no complications post transfusion. 7. Hypoalbuminemia related to poor nutritional intake. 8. Chronic renal insufficiency with acute exacerbation from hypovolemia showing improvement with treatment initiation. 9. Hyperglycemia. 10. Significant weakness secondary to normocytic/normochromic anemia both suggestive of chronic illness and secondary to renal insufficiency again showing good response with 2 units of packed red blood cells. PLAN: Will continue with Unasyn at this point and hold off on continuing with vancomycin as she has shown good response. Will anticipate hopefully being able to discharge tomorrow to continue with parenteral antibiotics to include Augmentin and additional doxycycline. Will plan to repeat laboratory studies in the morning if clinically stable. Again, the patient will hopefully be discharged to have close clinical followup with Dr. Aden in the outpatient setting. #[id number] [facility]
[2017-12-07] MEDS: ENOXAPARIN SODIUM 30 MG/0.3 ML SYG SUBCU SCH (23:30)
[2017-12-08] MEDS: OMEPRAZOLE CAP 20 MG CAP PO SCH (06:18)
[2017-12-08] MEDS: POTASSIUM CHLORIDE 10 MEQ TAB PO SCH (07:27)
[2017-12-08] MEDS: SODIUM CHLORIDE 0.9% 1000ML 1,000 ML IVS PRN ×2 (07:33→19:52)
[2017-12-08] MEDS: RAMIPRIL 2.5 MG CAP PO SCH (08:12)
[2017-12-08] MEDS: ASPIRIN (CHEWABLE) 81 MG TAB PO SCH (08:12)
[2017-12-08] MEDS: METOPROLOL SUCCINATE XL 25 MG TAB PO SCH (08:12)
[2017-12-08] MEDS: FUROSEMIDE 40 MG TAB PO SCH (08:13)
[2017-12-08] MEDS: predniSONE 5 MG TAB PO SCH (08:13)
[2017-12-08] MEDS: CHLORHEXIDINE GLUC 4% 15ML 45 ML, WATER FOR IRRIGATION 1,000 ML TOP SCH ×4 (08:20→20:31)
[2017-12-08] MEDS: HYDROcodone 5MG/APAP 325MG 1 EA TAB PO PRN ×3 (08:32→20:38)
[2017-12-08] MEDS ORDERED: AMPICILLIN & SULBACTAM SODIUM 1.5 GM VIAL ONE (11:15)
[2017-12-08] MEDS ORDERED: SODIUM CHL 0.9% 50ML MIN-BAG+ 50 ML IVPB ONE (11:15)
[2017-12-08] MEDS: AMPICILLIN & SULBACTAM SODIUM 1.5 GM in SODIUM CHL 0.9% 50ML MIN-BAG+ 50 ML IVPB SCH (11:17)
[2017-12-08] MEDS: DOXYCYCLINE HYCLATE CAP 100 MG CAP PO SCH ×2 (14:35→20:31)
[2017-12-08] MEDS ORDERED: AMOXICILLIN & POT CLAVULANATE 875 MG TAB ONE (16:17)
--- NOTE | 2017-12-08 19:00 | PN ---
DATE: 12/08/17 SUPERVISING PHYSICIAN: Sandoval Buchanan M.D. SUBJECTIVE: The patient has been able to ambulate with Physical Therapy for a short period of time. She becomes easily exerted. She notes that the pain in her left leg continues but is less than yesterday, but the swelling has decreased significantly. She remains afebrile. Discussed going home possibly today, however white count showed some slight elevation and after further discussion with family members, she has no safe arrangements to go home given the extended weather and icing of the sidewalks at her house, and is a severe fall risk. Discussion of continuing with an additional 24 hours of parenteral antibiotics, to discharge tomorrow. OBJECTIVE: VITAL SIGNS: Temperature 98.1, pulse 74, blood pressure 160/91, respirations 17, satting 98% on room air. I's and O's show a positive balance of 1018 with 1360 in, 350 out. She has had 1 bowel movement. Weight is 65.0 kg. CHEST: Lungs were clear to auscultation bilaterally. HEART: Regular rate and rhythm. ABDOMEN: Soft,non-tender. Positive bowel sounds. EXTREMITIES: Left leg shows trace of edema and pump and still operator on palpation. Pulses distally are strong and brisk. No areas of drainage or obvious infection. An area between just below the patella down to the foot remains without any erythema. NEUROLOGIC: She is alert and oriented times three. LABORATORY: White count today shows a slight elevation, it is up to 12,500 with hemoglobin and hematocrit being stable at 11.2 and hematocrit 35.0, platelet count 304,000. Differential shows to be without a left shift today. Chemistries show normal electrolytes with potassium 4.1, BUN 7, creatinine is improving and is down to 1.63 with calcium 8.0. C reactive protein is improving , it is down to 5.8. MICROBIOLOGY: Blood cultures remain negative at 48 hours. RADIOLOGY: No additional radiographic studies were ordered today. ASSESSMENT: 1. Left lower extremity cellulitis without any evidence of deep venous thrombosis or arterial occlusion as noted on ultrasound studies felt to be secondary to possible cat bite or scratch showing good improvement with parenteral antibiotics to include Unasyn. 2. Significant leukocytosis with left shift suggesting significant inflammatory response to an infectious process continuing to show elevation despite continued parenteral antibiotics. 3. History of hypertension. 4. Gastroesophageal reflux disease. 5. History of polymyalgia rheumatica on prednisone, low dose possibly resulting in the continued leukocytosis. 6. Anemia with hemoglobin initially of 7.5 and a normocytic/normochromic pattern, possibly related to the chronic underlying renal insufficiency/failure with improvement with 2 units of packed red blood cells without any complications post transfusion. 7. Hypoalbuminemia related to poor nutritional intake. 8. Chronic renal insufficiency with acute exacerbation from hypovolemia showing improvement with treatment initiation. 9. Hyperglycemia. 10. Significant weakness secondary to chronic anemia from ongoing continued renal insufficiency and responding well to 2 units of packed red blood cells. PLAN: Will plan to continue the Unasyn today with the patient discharging tomorrow and transitioning to p.o. medication with doxycycline later today and initiation of Augmentin tonight. I discussed with the family that the patient will go home tomorrow once the son has made arrangements to have a safe environment for the patient to go home to. Until then, will continue to monitor and treat appropriately. #[id number] [facility]
[2017-12-08] MEDS: ALPRAZolam 0.25 MG TAB PO SCH (20:30)
[2017-12-08] MEDS: levETIRAcetam 250 MG TAB PO SCH (20:30)
[2017-12-08] MEDS: busPIRone HCL 5 MG TAB PO SCH (20:30)
[2017-12-08] MEDS: AMOXICILLIN & POT CLAVULANATE 875 MG TAB PO SCH (20:30)
[2017-12-08] MEDS: IV SET AND CAP CHANGE INJ INJ SCH (23:39)
[2017-12-08] MEDS: ENOXAPARIN SODIUM 30 MG/0.3 ML SYG SUBCU SCH (23:39)
[2017-12-09] MEDS ORDERED: ONDANSETRON INJ 4 MG/2 ML VIAL IV PRN (04:47)
[2017-12-09] MEDS: OMEPRAZOLE CAP 20 MG CAP PO SCH (06:03)
[2017-12-09] MEDS ORDERED: cloNIDine HCL 0.1 MG TAB PO ONE (06:35)
[2017-12-09] MEDS: SODIUM CHLORIDE 0.9% 1000ML 1,000 ML IVS PRN (06:46)
[2017-12-09] MEDS: POTASSIUM CHLORIDE 10 MEQ TAB PO SCH (07:33)
[2017-12-09] MEDS: DOXYCYCLINE HYCLATE CAP 100 MG CAP PO SCH (08:11)
[2017-12-09] MEDS: AMOXICILLIN & POT CLAVULANATE 875 MG TAB PO SCH (08:12)
[2017-12-09] MEDS: RAMIPRIL 2.5 MG CAP PO SCH (08:12)
[2017-12-09] MEDS: ASPIRIN (CHEWABLE) 81 MG TAB PO SCH (08:12)
[2017-12-09] MEDS: METOPROLOL SUCCINATE XL 25 MG TAB PO SCH (08:12)
[2017-12-09] MEDS: FUROSEMIDE 40 MG TAB PO SCH (08:12)
[2017-12-09] MEDS: predniSONE 5 MG TAB PO SCH (08:12)
[2017-12-09] MEDS: CHLORHEXIDINE GLUC 4% 15ML 45 ML, WATER FOR IRRIGATION 1,000 ML TOP SCH ×2 (08:16)
[2017-12-09 10:07] VITALS: BP 154/88; TEMP 98.2; O2SAT 92
--- NOTE | 2017-12-11 15:43 | DS ---
SUPERVISING PHYSICIAN: Sandoval Buchanan M.D. DISCHARGE DIAGNOSES: 1. Left lower extremity cellulitis without any evidence of deep venous thrombosis or arterial occlusion as noted on ultrasound studies felt to be secondary to possible cat bite or scratch showing good improvement with parenteral antibiotics to include Unasyn and transitioned to Doxycycline and Augmentin. 2. Significant leukocytosis with left shift suggesting significant inflammatory response from infectious process showing good response to antibiotics as C- reactive protein was returning to normal baseline status. 3. History of hypertension. 4. Gastroesophageal reflux disease. 5. History of polymyalgia rheumatica on prednisone, low dose resulting in a mild leukocytosis. 6. Anemia with hemoglobin initially of 7.5 and a normocytic/normochromic pattern, possibly related to chronic underlying renal insufficiency improved with 2 units of packed red blood cells and showing to be stable without any complications post transfusion. 7. Hypoalbuminemia related to poor nutritional intake. 8. Chronic renal insufficiency with acute exacerbation from hypovolemia showing improvement with treatment of IV fluids and infusion of blood. 9. Hyperglycemia. 10. Significant weakness secondary to chronic anemia from ongoing continued renal insufficiency but responding well to 2 units of packed red blood cells. REASON FOR HOSPITALIZATION: Ms. Santiago is an 87-year-old female who is admitted to the hospital from the Emergency Room due to significant pain, swelling, erythema and question infection in the left lower extremity. She has had intermittent swelling in her legs in the past for which she takes an occasional Lasix to assist with the edema state. Her problem time of admission started and worsened over the last three or four days prior to admission and shortly after being bitten by one of her cats while feeding the cat which had done this before. The bite was on the dorsum of her left extremity include calf up to the thigh is swollen, erythematous, very tender especially through region of palpation. On admission there was no drainage or any sites of the cat bite appears to be fairly well closed over and healed with eschar with no drainage noted. The patient is followed by Dr. Aden in the clinic. She has had multiple medications, many of which have been adjusted and required specialized review in order to get to the basics of her current medication program. The patient was admitted to the hospital because of a white count of 22,000 with associated significant infection and inability to walk because of pain within the tissues especially of her thigh. In the Emergency Room she was given initially vancomycin anticipating a staph or strep infection. After fully assessment and per examination of the origin of the infection, she was transitioned to Unasyn. She was admitted to the medical/surgical floor in stable condition for further treatment and evaluation. LABORATORY: Initial white count on admission was 22,000, after initiation of treatment with Unasyn and prior to discharge her white count had gone down to 13 ,900. Hemoglobin was stable after transfusion which showed her hemoglobin was 7.5, hematocrit 22.6. After 2 units of packed red blood cells, hemoglobin was stable at discharge at 11.7, hematocrit 36.0 with platelet count of 356,000. Differential did show a left shift that was resolving prior to discharge. Coagulation studies showed just a slightly elevated PT of 15.3 with PTT of 27.2. Chemistries on admission showed a sodium of 131, BUN up to 57, creatinine at 2.0, calcium 7.9, liver functions showed to be within normal limits. BNP was 573. Initial C-reactive protein was 12.4, prior to discharge and after initiation of treatment her electrolytes had normalized. Potassium was 3.9, sodium 137, BUN down to 43, creatinine down to 1.41 and C-reactive protein was down to 5.8. Urinalysis on admission was within normal limits except for 100 of protein on the dipstick examination. She had 2 sets of blood cultures that remained negative at 4 days. RADIOLOGY: Lower extremity ultrasound of the left lower extremity that showed no evidence of a DVT. She also had a lower extremity ultrasound of the arterial side which per radiology interpretation showed no elevation of peak systolic velocities suggesting hemodynamically stenosis. She also had a carotid artery ultrasound study completed which showed extensive atherosclerotic plaque in the carotid bifurcations, left more than right with flow velocity measurements indicating left ICA at 40 to 50% stenosis. There was retrograde flow in the right vertebral artery. She also had a chest x-ray on admission and per radiology interpretation showed cardiomegaly with pulmonary vascular congestion. HOSPITAL COURSE: Ms. Santiago was admitted from the Emergency Room for initiation of treatment for antibiotic coverage for a cat bite of the left lower extremity initially with vancomycin and transitioned to Unasyn. She clinically responded well to treatment. She had a significant leukocytosis that was resolving after initiation of treatment. She was also found to be significantly anemic due to her chronic state of renal dysfunction and after 2 units of packed red blood cells had showed good improvement in her hemoglobin and hematocrit and showed to be stable without any complications. She was assessed by physical therapy and found to be strong enough and safe enough to discharge home to continue with physical therapy with her home health through [facility]. PLAN: Ms. Raymundo was discharged on 12/08/17 with instructions to have close clinical followup with Dr. Aden in the next week. She was transitioned to p.o. medication from [facility] that included Augmentin for an additional 5 days for total completion of 10 days treatment course as well as started on Doxycycline prior to discharge 100 mg twice a day for 10 days. She was to resume her home medications as previous and to keep her legs elevated when she is in a chair and return to the hospital should she have any concerning symptoms. Discharge Diet: Normal diet as tolerated. Activities: Increase as tolerated per physical therapy and home health. New prescriptions at discharge: 1. Augmentin 875 mg every 12 hours, #10. 2. Align 4 mg twice a day, #20. 3. Doxycycline 100 mg twice a day, #20. CONDITION ON DISCHARGE: Stable and improved. #[id number] [facility]
== END 2017-12-09 10:58 | disposition home health service (06) | DRG 603 ==
LOC: ER 20:38 → OBSVTOIN 22:55 → MS 22:55
PROVIDERS: ADMIT Emergency Medicine; ATTEND Nurse Practitioner Family
PROC: 30233N1 Transfusion of Nonautologous Red Blood Cells into Peripheral Vein, Percutaneous Approach (ICD-10-PCS; principal; 2017-12-06)
DX: L03.116 Cellulitis of left lower limb (principal); I12.9 Hypertensive chronic kidney disease with stage 1 through stage 4 chronic kidney disease, or unspecified chronic kidney disease; K21.9 Gastro-esophageal reflux disease without esophagitis; M35.3 Polymyalgia rheumatica; D63.1 Anemia in chronic kidney disease; E88.09 Other disorders of plasma-protein metabolism, not elsewhere classified; E86.1 Hypovolemia; I65.22 Occlusion and stenosis of left carotid artery; M17.0 Bilateral primary osteoarthritis of knee; N28.9 Disorder of kidney and ureter, unspecified; R73.9 Hyperglycemia, unspecified; S80.87 Other superficial bite of lower leg; Z79.52 Long term (current) use of systemic steroids; W55.01XS Bitten by cat, sequela; Z79.82 Long term (current) use of aspirin; Z79.891 Long term (current) use of opiate analgesic; Z79.899 Other long term (current) drug therapy; Z86.73 Personal history of transient ischemic attack (TIA), and cerebral infarction without residual deficits; Z95.0 Presence of cardiac pacemaker; Z86.39 Personal history of other endocrine, nutritional and metabolic disease

== ENCOUNTER → 2017-12-23 | Outpatient (CLI) | payer MEDICARE | LOC: BFHH 15:45 | PROVIDERS: ATTEND Internal Medicine Medical Oncology | DX: D50.9 Iron deficiency anemia, unspecified (principal); D53.1 Other megaloblastic anemias, not elsewhere classified; N18.3 Chronic kidney disease, stage 3 (moderate); E11.22 Type 2 diabetes mellitus with diabetic chronic kidney disease ==

== ENCOUNTER → 2018-01-19 | Outpatient (CLI) | payer MEDICARE ==
--- NOTE | 2018-01-19 11:41 | RAD ---
EXAM DESCRIPTION: Pelvis CLINICAL HISTORY: 87 years Female, PAIN COMPARISON: None. FINDINGS: Bony pelvis is osteopenic with moderately advanced bilateral hip degenerative arthropathy with joint space narrowing. Advanced lower lumbar spine degenerative disc disease with modest scoliosis is evident. No soft tissue pelvic mass is seen. Pubic rami and ischio rami are intact. No fractures or deformities are seen. IMPRESSION: Osteopenia and degenerative changes without mass or acute injury. Electronically signed by: Sandoval Stringer MD 01/19/2018 11:40 AM CDT
== END | disposition home or self-care (01) ==
LOC: RAD 09:21
PROVIDERS: ATTEND Orthopaedic Surgery
DX: M25.551 Pain in right hip (principal); M25.552 Pain in left hip

== ENCOUNTER → 2018-02-01 | Outpatient (CLI) | payer MEDICARE | LOC: BFHH 12:28 | PROVIDERS: ATTEND Internal Medicine Medical Oncology | DX: E53.8 Deficiency of other specified B group vitamins (principal); D64.9 Anemia, unspecified; L03.116 Cellulitis of left lower limb; I13.0 Hypertensive heart and chronic kidney disease with heart failure and stage 1 through stage 4 chronic kidney disease, or unspecified chronic kidney disease; I50.9 Heart failure, unspecified; N18.3 Chronic kidney disease, stage 3 (moderate); M62.81 Muscle weakness (generalized); E11.22 Type 2 diabetes mellitus with diabetic chronic kidney disease; M35.3 Polymyalgia rheumatica ==

== ENCOUNTER → 2018-04-06 | Outpatient (CLI) | payer MEDICARE | LOC: GMAB 13:34 | PROVIDERS: ATTEND Internal Medicine Medical Oncology | DX: D50.8 Other iron deficiency anemias (principal); I13.0 Hypertensive heart and chronic kidney disease with heart failure and stage 1 through stage 4 chronic kidney disease, or unspecified chronic kidney disease; N18.9 Chronic kidney disease, unspecified ==

== ENCOUNTER → 2018-05-24 | Outpatient (CLI) | payer MEDICARE | LOC: BFHH 14:24 | PROVIDERS: ATTEND Family Medicine | DX: N39.0 Urinary tract infection, site not specified (principal) ==

== ENCOUNTER 2018-10-06 12:35 | Inpatient (IN) | payer MEDICARE ==
--- NOTE | 2018-10-06 12:50 | ED.PDOC ---
History of Present Illness - General Stated Complaint: SWELLING UPPER EXTREMITY Time Seen by Provider: 10/06/18 12:45 Source: patient Exam Limitations: no limitations - History of Present Illness Initial Comments: PT SENT BY HOME HEALTH FOR EVALUATION OF RUE SWELLING. HAS BEEN SWOLLEN FOR 2-3 DAYS. C/O PAIN. Severity: moderate Improving Factors: nothing Worsening Factors: nothing Associated Symptoms: shortness of breath Allergies/Adverse Reactions: Allergies NO KNOWN ALLERGY Allergy (Verified 10/06/18 12:49) Home Medications: Ambulatory Orders Aspirin [Baby Aspirin] 81 mg PO QD 07/23/14 Buspirone HCl 10 mg PO BEDTIME 09/14/15 Cyanocobalamin [B-12] 2,500 mcg PO DAILY 09/14/15 Omeprazole 20 mg PO DAILY 09/14/15 Acetaminophen [Tylenol] 500 mg PO Q4HR PRN 12/02/15 Albuterol Sulfate Nebs [Proventil Nebs] 2.5 mg INH PRN 12/02/15 Calcium Carbonate 600 mg PO DAILY 12/02/15 Clonidine HCl 0.1 mg PO PRN 12/02/15 HYDROcodone 10MG/APAP 325MG [Penrose 10/325] 1 tab PO Q4HR PRN 12/02/15 Cljkskdx-Vvqveqhbli-Pwufmrpjf [Neosporin] 1 applic TOP PRN 12/02/15 Potassium Chloride [Micro-K] 10 meq PO DAILY 12/02/15 Promethazine HCl 25 mg PO Q4HR PRN 12/02/15 Tramadol HCl 50 mg PO Q4HR PRN 12/02/15 ALPRAZolam [Xanax] 0.25 mg PO BEDTIME 12/06/17 Atorvastatin Calcium [Lipitor] 20 mg PO BEDTIME 12/06/17 Lubiprostone [Amitiza] 24 mcg PO BID PRN 12/06/17 Metoprolol Succinate [Metoprolol Succinate ER] 25 mg PO DAILY 12/06/17 Montelukast [Singulair] 10 mg PO DAILY 12/06/17 Ramipril 10 mg PO QAM 12/06/17 Furosemide [Lasix] 40 mg PO DAILY 10/06/18 Prednisone 5 mg PO DAILY 10/06/18 Review of Systems - Review of Systems Constitutional: Denies: chills, fever EENTM: States: no symptoms reported Respiratory: States: short of breath. Denies: cough, wheezing Cardiology: Denies: chest pain, palpitations, syncope Gastrointestinal/Abdominal: Denies: diarrhea, nausea, vomiting Genitourinary: States: no symptoms reported Musculoskeletal: Denies: back pain, joint swelling, neck pain Skin: States: no symptoms reported Neurological: States: no symptoms reported Endocrine: States: no symptoms reported Hematologic/Lymphatic: States: no symptoms reported Past Medical History (General) - Patient Medical History Hx Seizures: No Hx Stroke: Yes Hx Dementia: No Hx Asthma: No Hx of COPD: No Hx Cardiac Disorders: Yes Hx Congestive Heart Failure: No Hx Pacemaker: Yes - noted Hx Hypertension: Yes Hx Thyroid Disease: No Hx Diabetes: Yes - years ago Hx Gastroesophageal Reflux: Yes Hx Renal Disease: No Hx Cancer: No Hx of HIV: No Hx Hepatitis C: No Hx MRSA: No - Vaccination History Hx Tetanus, Diphtheria Vaccination: Yes Hx Influenza Vaccination: Yes Hx Pneumococcal Vaccination: No - Social History Hx Tobacco Use: No Hx Chewing Tobacco Use: No Hx Alcohol Use: No Hx Substance Use: No Hx Substance Use Treatment: No Hx Depression: No Hx Physical Abuse: No Hx Emotional Abuse: No Hx Suspected Abuse: No - Female History Patient : No Family Medical History - Family History Mother Living Status: Hx Family Cancer: Yes Physical Exam - Physical Exam General Appearance: Alert, Frail Eye Exam: bilateral normal Ears, Nose, Throat: hearing grossly normal, normal ENT inspection Neck: non-tender, full range of motion, supple, normal inspection Respiratory: lungs clear, no respiratory distress, other - SATS 88% RA (HYPOXEMIC) Cardiovascular/Chest: regular rate, rhythm - 2/6 JEREMIE WITH SOFT DIASTOLIC COMPONENT. OCC ECTOPY Gastrointestinal/Abdominal: normal bowel sounds, non tender, soft, no organomegaly Back Exam: normal inspection, no CVA tenderness, no vertebral tenderness Extremity: normal range of motion, other - SWELLING L ELBOW C/W CHRONIC BURSITIS, TR PITTING EDEMA RUE, L NL, 1+ PITTING EDEMA LINO LE. Neurologic: alert, normal mood/affect Skin Exam: normal color, warm/dry Lymphatic: no adenopathy Progress - Progress Progress: 10/06/18 1445 D/W ELI COOL, WILL ADMIT - EKG/XRAY/CT EKG: Atrial - SENSED VENTRICULAR PACED RHYTHM RATE 83, OH 204, NL AXIS, , nonspecific ST T wave Chg - NAIP, , Unchanged from - 09/14/18, ATRIAL SENSED RHYTHM HAS REPLACED, ATRIAL PACED XRAY: chest - RLL INFILTRATE, CARDIOMEGALY, MILD VENOUS CONGESTION Departure - Departure Clinical Impression: Hypoxemia Pneumonia Qualifiers: Pneumonia type: due to unspecified organism Laterality: right Lung location: lower lobe of lung Qualified Code(s): J18.1 - Lobar pneumonia, unspecified organism CHF (congestive heart failure) Qualifiers: Heart failure type: unspecified Heart failure chronicity: acute Qualified Code(s): I50.9 - Heart failure, unspecified Hypertension Qualifiers: Hypertension type: essential hypertension Qualified Code(s): I10 - Essential (primary) hypertension Time of Disposition: 15:18 Disposition: Admit Patient Condition: Fair Referrals: YANCY REID MD [Primary Care Provider] - 1-2 Weeks Home Medications: Ambulatory Orders Aspirin [Baby Aspirin] 81 mg PO QD 07/23/14 Buspirone HCl 10 mg PO BEDTIME 09/14/15 Cyanocobalamin [B-12] 2,500 mcg PO DAILY 09/14/15 Omeprazole 20 mg PO DAILY 09/14/15 Acetaminophen [Tylenol] 500 mg PO Q4HR PRN 12/02/15 Albuterol Sulfate Nebs [Proventil Nebs] 2.5 mg INH PRN 12/02/15 Calcium Carbonate 600 mg PO DAILY 12/02/15 Clonidine HCl 0.1 mg PO PRN 12/02/15 HYDROcodone 10MG/APAP 325MG [Penrose 10/325] 1 tab PO Q4HR PRN 12/02/15 Ooocykvw-Xltbpdptoj-Ripnuuqli [Neosporin] 1 applic TOP PRN 12/02/15 Potassium Chloride [Micro-K] 10 meq PO DAILY 12/02/15 Promethazine HCl 25 mg PO Q4HR PRN 12/02/15 Tramadol HCl 50 mg PO Q4HR PRN 12/02/15 ALPRAZolam [Xanax] 0.25 mg PO BEDTIME 12/06/17 Atorvastatin Calcium [Lipitor] 20 mg PO BEDTIME 12/06/17 Lubiprostone [Amitiza] 24 mcg PO BID PRN 12/06/17 Metoprolol Succinate [Metoprolol Succinate ER] 25 mg PO DAILY 12/06/17 Montelukast [Singulair] 10 mg PO DAILY 12/06/17 Ramipril 10 mg PO QAM 12/06/17 Furosemide [Lasix] 40 mg PO DAILY 10/06/18 Prednisone 5 mg PO DAILY 10/06/18 Decision To Admit - Decistion To Admit Decision to Admit Date: 10/06/18 Decision to Admit Time: 14:45
--- NOTE | 2018-10-06 13:01 | RAD ---
EXAM DESCRIPTION: Chest,1 View CLINICAL HISTORY: 87 years Female, SOB, HYPOXEMIA COMPARISON: Previous study December 05, 2017 TECHNIQUE: AP portable chest. FINDINGS: Heart size is large with increased pulmonary vascularity. Cardiac pacer is in place. Infiltrate is seen in the right lower lobe consistent with pneumonia. This is new compared to the previous study. There is vascular congestion and mild perihilar and lower lobe edema bilaterally. No pulmonary mass or worrisome nodule. No pneumothorax or pleural effusion. Advanced arthritic changes in the right shoulder. IMPRESSION: Right lower lobe consolidation consistent with pneumonia. Large heart with vascular congestion and mild bilateral pulmonary edema. Electronically signed by: Ricardo Hernandez MD 10/06/2018 12:59 PM LEGAL RECEPTIONIST
--- NOTE | 2018-10-06 13:06 | RAD ---
EXAM DESCRIPTION: Forearm,Right CLINICAL HISTORY: 87 years Female, SWELLING, COMPARISON: None. FINDINGS: Bones are osteoporotic. Deformities of the distal radius and ulna are consistent with old fractures. No dislocation or acute fracture. Mild spurring at the olecranon. IMPRESSION: Negative for acute fracture. 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
[2018-10-06] MEDS ORDERED: FUROSEMIDE INJ 40 MG/4 ML VIAL IV ONE (14:42)
[2018-10-06] MEDS ORDERED: cefTRIAXone SODIUM 1 GM in SODIUM CHL 0.9% 50ML MIN-BAG+ 50 ML IVPB ONE (14:45)
[2018-10-06] MEDS ORDERED: AZITHROMYCIN IV 500 MG in SODIUM CHLORIDE 0.9% 250ML 250 ML IVPB ONE (14:45)
[2018-10-06] MEDS ORDERED: cefTRIAXone SODIUM 1 GM VIAL ONE (14:47)
[2018-10-06] MEDS ORDERED: AZITHROMYCIN IV 500 MG VIAL IVPB ONE (14:47)
[2018-10-06] MEDS ORDERED: SODIUM CHL 0.9% 50ML MIN-BAG+ 50 ML IVPB ONE (14:47)
[2018-10-06] MEDS ORDERED: SODIUM CHLORIDE 0.9% 250ML 250 ML ONE ×2 (14:48→20:41)
--- NOTE | 2018-10-06 18:06 | HP ---
SUPERVISING PHYSICIAN: Paresh Briseno MD CHIEF COMPLAINT: Fever, right arm edema. HISTORY OF PRESENT ILLNESS: Ms. Santiago is an 87 year-old patient referred to the Emergency Room by Home Health nurse after evaluation of left upper extremity swelling noting the swelling had been present for 2 to 3 days and she was complaining of pain as well as running a fever. In the Emergency Room, vital signs showed she was febrile with a temperature of 100.5 and 02 saturation showing 85% on room air. Her laboratory studies showed she had a significant leukocytosis of 24,600 with a left shift and bandemia. Chemistries showed normal electrolytes, BUN elevated at 65, creatinine 1.47. Liver enzymes were showing to be within normal limits. BNP was elevated at 2,180 with troponin of 0.04. .Her urinalysis showed 300 of protein with trace intact blood, otherwise within normal limits. Chest x-ray was completed with concerns of possible pneumonia given she was running a fever and showing desaturation on room air and per radiology interpretation there was note of a right lower lobe consolidation with pneumonia with a large heart with vascular congestion and mild bilateral pulmonary edema. The right forearm was swollen so x-ray was completed which does not show any acute fractures. Given the findings on the radiographic studies and the fever and with the patient having right lower lobe pneumonia, she was started on antibiotic therapy with Rocephin and azithromycin. Her lactic acid was within normal limits at 1.2. She was given 40 of Lasix IV as well and now is going to be admitted for both exacerbation of chronic obstructive pulmonary disease with right lower lobe pneumonia and mild exacerbation of her congestive heart failure with mild patient underwent edema. She was admitted in stable condition. PAST MEDICAL HISTORY: 1. Gastroesophageal reflux disease. 2. Hypertension. 3. Polymyalgia rheumatica. 4. Chronic kidney disease. PAST SURGICAL HISTORY: 1. Appendectomy, 2. Cholecystectomy. 3. Hysterectomy. CURRENT MEDICATIONS: 1. Lasix 40 mg b.i.d. 2. Prednisone 5 mg daily. 3. Xanax 0.25 mg at bedtime. 4. Lipitor. 5. Baby aspirin 81 mg daily. 6. Wellbutrin 10 mg daily. 7. Singulair 10 mg daily. 8. Metoprolol; succinate extended release 25 mg daily. 9. Potassium chloride 10 mEq daily. 10. Omeprazole 20 mg daily. 11. Ramipril 10 mg daily. ALLERGIES: NO KNOWN DRUG ALLERGIES. FAMILY HISTORY: Positive for diabetes, coronary artery disease, lung disease, cancer, strokes. SOCIAL HISTORY: The patient lives with her son. She has never smoked or drank alcohol. 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 REVIEW OF SYSTEMS: CONSTITUTIONAL: Negative for chills or fevers or unintentional weight loss. HEENT: Negative for nasal congestion, earache or sore throat. Positive for decreased hearing and vision. CARDIOVASCULAR: Negative for chest pain, palpitations or syncopal episodes. GASTROINTESTINAL: Negative for nausea, vomiting, diarrhea. GENITOURINARY: Negative for dysuria, hematuria, polyuria. MUSCULOSKELETAL: History of polymyalgia rheumatica but negative for any current back pain, joint swelling or neck pain. NEUROLOGICAL: Negative for ataxia, seizures, vision changes, headache. PHYSICAL EXAMINATION: VITAL SIGNS: She is febrile with a temperature of 100.5, pulse 96, blood pressure 157/79, respirations 20, saturation 85% on room air, improving to 97% with 3-liter nasal cannula and post nebulizer treatment. Admission weight 59.1 kg. GENERAL: The patient appears to be very frail and advanced in age. She is alert, notes that she just hurts all over but shows to be in no acute apparent distress. HEENT: Tympanic membranes clear bilaterally. Oropharynx is pink, moist without any lesions. NECK: Supple, non-tender ,full range of motion. No jugular venous distention. CHEST: Lungs have notable rhonchi on the right side, more prominent on the posterolateral aspect with 02 saturations showing to be 88% on room air. CARDIOVASCULAR: Regular rate and rhythm with 2 /6 systolic ejection murmur, rubs or rales. ABDOMEN: Soft, nontender to palpation, positive bowel sounds. EXTREMITIES: Moves all extremities ad zoraida. Notable swelling to the left elbow due to chronic bursitis with a trace of pitting edema noted to the right upper extremity, left was showing to be within normal limits and there was 1+ pitting edema to bilateral lower extremities. NEUROLOGIC: She is alert and oriented x3. SKIN: Warm and dry. No lesions or rashes noted. LYMPHATIC SYSTEM: Notable lymphadenopathy. LABORATORY: White count showed leukocytosis 24,600 with hemoglobin 11,000, hematocrit 34.5, platelet count 299,000, differential showed a left shift with bandemia. Coagulation studies showed a PT of 13.8, PTT normal at 24.5. Chemistries showed electrolytes to be within normal limits. Potassium 4.4, BUN elevated at 55, creatinine 1.47, glucose on admission 129, lactic acid 1.2, liver functions within normal limits. Troponin 0.04, BNP elevated at 2180. Urinalysis showed greater than 300 protein and trace of intact blood, otherwise within normal limits. MICROBIOLOGY: Influenza swab for A and B negative for both A and B. She had 2 sets of blood cultures that are pending. Sputum culture pending. RADIOLOGY: Chest x-ray, single view in the Emergency Room showed per radiology interpretation a right lower lobe consolidation consistent with pneumonia with enlarged heart with vascular congestion and mild bilateral pulmonary edema. She had a forearm x-ray on the right which was negative for any acute fractures. ASSESSMENT: 1. Right lower lobe pneumonia community acquired. 2. Leukocytosis with bandemia secondary to #1 and possibly related to the ongoing bursitis and cellulitis in the right forearm. 3. 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 4. Elevated BNP with no mention of a formal diagnosis of congestive heart failure. No echocardiogram available for review but patient showing some bilateral lower extremity pitting edema with radiographic studies indication mild patient underwent congestion and edema with patient being hypoxic on room air. 5. Acute on chronic kidney disease. 6. History of gastroesophageal reflux disease probably due to some mild dehydration and chronic use of diuretics to include Lasix. 7. History of hypertension. 8. History of polymyalgia rheumatica. PLAN: The patient is going to be admitted to the medical/surgical floor for ongoing further treatment and evaluation for both the developing right lower lobe pneumonia and pulmonary edema. She was given 40 of IV Lasix in the Emergency Room. Will go ahead and place a Cabrera catheter for I &Os while she is ill. She will be started on antibiotic coverage with azithromycin and Rocephin. She will be started on SCDs prophylaxis and insulin sliding scale per protocol. Will start her on some Protonix for GI prophylaxis while acutely ill. She will be on aggressive pulmonary hygiene with p.o. q.i.d. Duoneb treatments. Will followup blood cultures and await sputum culture results . Will anticipate her low-dose to be at least 2 to 3 days. Until she can transition to other problems manage, we will continue to monitor and treat as needed. #[id number] MTDD
[2018-10-06] MEDS ORDERED: ALBUTEROL SULFATE 2.5 MG/3 ML VIAL NEB PRN (18:21)
[2018-10-06] MEDS ORDERED: ONDANSETRON INJ 4 MG/2 ML VIAL IV PRN (18:21)
[2018-10-06] MEDS ORDERED: GLUCAGON INJ 1 MG VIAL SUBCU PRN (18:44)
[2018-10-06] MEDS ORDERED: DEXTROSE 50% 25 GM/50 ML SYG IV PRN (18:44)
[2018-10-06] MEDS ORDERED: IPRATROPIUM/ALBUTEROL 3 ML VIAL INH SCH (20:00)
[2018-10-06] MEDS: IV SET AND CAP CHANGE INJ INJ SCH (20:18)
[2018-10-06] MEDS ORDERED: busPIRone HCL 5 MG TAB ONE (20:21)
[2018-10-06] MEDS ORDERED: ALPRAZolam 0.5 MG TAB ONE (20:21)
[2018-10-06] MEDS: ACETAMINOPHEN 325 MG TAB PO PRN (20:34)
[2018-10-06] MEDS ORDERED: VANCOMYCIN HCL INJ 1,500 MG in SODIUM CHLORIDE 0.9% 250ML 250 ML IVPB ONE (20:35)
[2018-10-06] MEDS: ATORVASTATIN 20 MG TAB PO SCH (20:35)
[2018-10-06] MEDS ORDERED: VANCOMYCIN HCL INJ 500 MG VIAL ONE (20:41)
[2018-10-06] MEDS ORDERED: VANCOMYCIN HCL INJ 1,000 MG VIAL IVPB ONE (20:42)
[2018-10-06] MEDS ORDERED: ALPRAZolam 0.25 MG TAB PO SCH (21:00)
[2018-10-06] MEDS ORDERED: NON-FORMULARY MEDICATION 1 EA MIS (Buspirone Hcl [Buspirone Hcl] 10 MG) PO SCH (21:00)
[2018-10-06] MEDS: INSULIN LISPRO 100 UNITS/ML PEN SUBCU SCH (21:04)
[2018-10-06] MEDS: ENOXAPARIN SODIUM 30 MG/0.3 ML SYG SUBCU SCH (21:06)
[2018-10-07] MEDS: ACETAMINOPHEN 325 MG TAB PO PRN ×2 (05:31→20:05)
[2018-10-07] MEDS: SODIUM CHLORIDE 0.9% (FLUSH) 10 ML SYG IV PRN (05:50)
[2018-10-07] MEDS: PANTOPRAZOLE SODIUM IV 40 MG VIAL IV SCH (05:50)
[2018-10-07] MEDS ORDERED: VANCOMYCIN PER PHARMACY IVPB SCH (08:00)
--- NOTE | 2018-10-07 08:10 | RAD ---
PROCEDURE: XR CHEST 1 VIEW HISTORY: Pneumonia COMPARISON: 10/06/2018 TECHNIQUE: Single projection of the chest was done. FINDINGS: Stable positioning of the dual chamber left-sided pacemaker is noted. There is bilateral vascular congestion. There are worsening right mid and lower lung zone and left lower lung zone infiltrate/atelectasis. There is small left-sided pleural effusion There are no pneumothoraces The cardiomediastinal silhouette is stable. IMPRESSION: There is bilateral vascular congestion. There are worsening right mid and lower lung zone and left lower lung zone infiltrate/atelectasis. There is small left-sided pleural effusion Electronically signed by: Aaron Bueno MD 10/07/2018 8:08 AM BUILDING CERTIFIER Workstation: [id number]
[2018-10-07] MEDS: INSULIN LISPRO 100 UNITS/ML PEN SUBCU SCH ×4 (08:17→21:14)
[2018-10-07] MEDS ORDERED: SODIUM CHL 0.9% 50ML MIN-BAG+ 50 ML IVPB ONE (08:41)
[2018-10-07] MEDS ORDERED: cefTRIAXone SODIUM 1 GM VIAL ONE (08:42)
[2018-10-07] MEDS: MONTELUKAST 10 MG TAB PO SCH (09:01)
[2018-10-07] MEDS: METOPROLOL SUCCINATE XL 25 MG TAB PO SCH (09:01)
[2018-10-07] MEDS: cefTRIAXone SODIUM 1 GM in SODIUM CHL 0.9% 50ML MIN-BAG+ 50 ML IVPB SCH (09:01)
[2018-10-07] MEDS: RAMIPRIL 2.5 MG CAP PO SCH (09:02)
[2018-10-07] MEDS: predniSONE 5 MG TAB PO SCH (09:02)
[2018-10-07] MEDS: FUROSEMIDE INJ 40 MG/4 ML VIAL IV SCH ×2 (09:03→18:39)
[2018-10-07] MEDS: POTASSIUM CHLORIDE 10 MEQ TAB PO SCH (09:03)
[2018-10-07] MEDS: ASPIRIN (CHEWABLE) 81 MG TAB PO SCH (09:03)
[2018-10-07] MEDS: IPRATROPIUM/ALBUTEROL 3 ML VIAL NEB SCH ×4 (09:03→20:48)
[2018-10-07] MEDS: CALCIUM CARBONATE-VITAMIN D 500 MG TAB PO SCH (09:04)
[2018-10-07] MEDS: KCL 20MEQ/0.45% NS 1,000 ML IVS PRN (11:36)
[2018-10-07] MEDS ORDERED: AZITHROMYCIN IV 500 MG VIAL IVPB ONE (17:14)
[2018-10-07] MEDS ORDERED: SODIUM CHLORIDE 0.9% 250ML 250 ML ONE (17:14)
[2018-10-07] MEDS: AZITHROMYCIN IV 500 MG in SODIUM CHLORIDE 0.9% 250ML 250 ML IVPB SCH (18:37)
[2018-10-07] MEDS: busPIRone HCL 5 MG TAB PO SCH (20:34)
[2018-10-07] MEDS: ENOXAPARIN SODIUM 30 MG/0.3 ML SYG SUBCU SCH (20:34)
[2018-10-07] MEDS: ATORVASTATIN 20 MG TAB PO SCH (20:34)
[2018-10-07] MEDS: ALPRAZolam 0.5 MG TAB PO SCH (20:35)
--- NOTE | 2018-10-07 21:15 | PN ---
DATE: 10/07/18 SUPERVISING PHYSICIAN: Paresh Briseno M.D. SUBJECTIVE: The patient notes that she feels better than she did yesterday in regards to the overall general pain but she said she is still having a little difficulty breathing. She was able to rest through the night. She has been afebrile. She has had no other complaints. OBJECTIVE: VITAL SIGNS: Temperature 98.1, pulse 60, blood pressure 156/71, respirations 17, satting 93% on nasal cannula at 2 liters. I's and O's show a positive balance of 290 with 1090 in, 800 out. Weight is 59.2 kg. GENERAL: The patient appears to be resting comfortably in no acute distress. She is alert. CHEST: Lung sounds are still diminished and very faint rhonchi heard on the right, again more prominent on the posterolateral aspect, but much improved aeration compared to admission. HEART: Regular rate and rhythm with a 2/6 systolic ejection murmur. No notable rubs or rales. ABDOMEN: Soft, non-tender. EXTREMITIES: There continues to be 1+ pitting edema to the bilateral lower extremities. NEUROLOGIC: She is over times three. LABORATORY: White count is down to 15,200 from 24,600 at admission with hemoglobin 9, hematocrit 27.9, platelet count 235,000. Differential does show a left shift but no bands today. Chemistries show normal electrolytes. Potassium 4.3, BUN 56, creatinine is up slightly to 1.61. Blood sugars have been fairly well controlled between 107 and 191. MICROBIOLOGY: Blood cultures remain negative at 24 hours. RADIOLOGY: Chest x-ray single view chest this morning per radiology interpretation shows bilateral vascular congestion with worsening on the right mid and lower lung zones with left lower lung zone infiltrate/atelectasis and a small left sided pleural effusion. ASSESSMENT: 1. Right lower lobe pneumonia community acquired requiring aggressive management with parenteral antibiotics. 2. Leukocytosis with bandemia secondary to #1 showing improvement after initiation of antibiotics with infection including pneumonia and bursitis and cellulitis of the right forearm. 3. 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 4. Elevated BNP with no mention of a formal diagnosis of congestive heart failure. No echocardiogram available for review but patient showing some bilateral lower extremity pitting edema as well as vascular congestion and some pulmonary edema continuing to be noted on radiographic studies with the patient continuing to need aggressive diuretic management and O2 support. 5. Acute on chronic kidney disease with slight worsening likely secondary to aggressive diuretics with Lasix as well as initiation of vancomycin for treatment of the right arm cellulitis continuing with pharmacy protocol. 6. History of gastroesophageal reflux disease. 7. History of hypertension. 8. History of polymyalgia rheumatica. PLAN: Will continue with current plan of care at this point with Rocephin and azithromycin and vancomycin. She continues to be on Lasix 40 mg b.i.d. We had to place a Cabrera in efforts to get better accurate I's and O's. Anticipate removal once the patient becomes much more stable. She continues on DVT and GI prophylaxis and aggressive pulmonary hygiene. Will plan to repeat labs in the morning as well as x-ray. Anticipate discharge in the next 48 hours hopefully. Until she can transition to outpatient management will continue to monitor and treat as needed. #[id number] [facility]
[2018-10-08] MEDS ORDERED: SODIUM CHL 0.9% 50ML MIN-BAG+ 50 ML IVPB ONE (05:07)
[2018-10-08] MEDS ORDERED: cefTRIAXone SODIUM 1 GM VIAL ONE (05:08)
[2018-10-08] MEDS: KCL 20MEQ/0.45% NS 1,000 ML IVS PRN (05:14)
[2018-10-08] MEDS: PANTOPRAZOLE SODIUM IV 40 MG VIAL IV SCH (06:09)
[2018-10-08] MEDS: POTASSIUM CHLORIDE 10 MEQ TAB PO SCH (07:39)
[2018-10-08] MEDS: IPRATROPIUM/ALBUTEROL 3 ML VIAL NEB SCH ×4 (07:51→20:00)
--- NOTE | 2018-10-08 08:05 | RAD ---
PROCEDURE: XR CHEST 1 VIEW HISTORY: pneumonia COMPARISON: 10/07/2018 TECHNIQUE: Single projection of the chest was done. FINDINGS: There is stable position of the dual chamber left-sided pacemaker wires. Right perihilar and basilar infiltrate/atelectasis are still present with interval improvement in this finding. Continued follow-up is suggested . There are no pneumothoraces or pleural effusions The cardiomediastinal silhouette is stable. IMPRESSION: Right perihilar and basilar infiltrate/atelectasis are still present with interval improvement in this finding. Continued follow-up is suggested . Electronically signed by: Aaron Bueno MD 10/08/2018 8:04 AM [facility] Workstation: [employer]
[2018-10-08] MEDS: INSULIN LISPRO 100 UNITS/ML PEN SUBCU SCH ×4 (09:12→21:19)
[2018-10-08] MEDS: MONTELUKAST 10 MG TAB PO SCH (09:39)
[2018-10-08] MEDS: ASPIRIN (CHEWABLE) 81 MG TAB PO SCH (09:39)
[2018-10-08] MEDS: METOPROLOL SUCCINATE XL 25 MG TAB PO SCH (09:39)
[2018-10-08] MEDS: cefTRIAXone SODIUM 1 GM in SODIUM CHL 0.9% 50ML MIN-BAG+ 50 ML IVPB SCH (09:39)
[2018-10-08] MEDS: predniSONE 5 MG TAB PO SCH (09:39)
[2018-10-08] MEDS: RAMIPRIL 2.5 MG CAP PO SCH (09:39)
[2018-10-08] MEDS: CALCIUM CARBONATE-VITAMIN D 500 MG TAB PO SCH (09:39)
[2018-10-08] MEDS: FUROSEMIDE INJ 40 MG/4 ML VIAL IV SCH ×2 (09:40→17:12)
[2018-10-08] MEDS ORDERED: SODIUM CHLORIDE 0.9% (FLUSH) 10 ML SYG IV ONE (10:52)
[2018-10-08] MEDS: SODIUM CHLORIDE 0.9% (FLUSH) 10 ML SYG IV SCH ×2 (11:30→21:21)
[2018-10-08] MEDS: guaiFENesin W/CODEINE LIQ 10 ML UD PO PRN ×2 (13:00→17:12)
[2018-10-08] MEDS: AZITHROMYCIN IV 500 MG in SODIUM CHLORIDE 0.9% 250ML 250 ML IVPB SCH (17:00)
--- NOTE | 2018-10-08 17:06 | PN ---
DATE: 10/08/18 SUPERVISING PHYSICIAN: Paresh Briseno M.D. SUBJECTIVE: The patient notes that she feels better today but feels like she is having a little bit more difficulty getting a breath but does not appear to be in any distress. She says she did rest during the night. She has remained afebrile. She has been up to a chair for meals. . OBJECTIVE: VITAL SIGNS: Temperature 98.4, pulse 74, blood pressure 163/66, respirations 18, satting anywhere from 98% to 100% on nasal cannula at rest on 2 liters. I's and O's show a positive balance of 1740 with 3190 in, 1450 out. Weight is 60.1 kg. GENERAL: The patient appears to be comfortable in no acute distress. No obvious signs of any respiratory compromise She is alert. CHEST: Lung sounds are fairly clear temperature of, jus diminished towards the bases, no wheezing is noted. HEART: Regular rate and rhythm. ABDOMEN: Soft, non-tender. Positive bowel sounds. EXTREMITIES: No cyanosis, clubbing, bilateral extremities show trace of edema today which is much from admission of 1 to 2+ pitting edema. .NEUROLOGIC: She is alert and oriented x3. LABORATORY: White count is now 12,300 with hemoglobin 9.4, hematocrit 291, platelet count 232,000. Differential continues to show a left shift. Chemistries show a mild elevated potassium at 5.2, oxygen saturation electrolytes normal with carbon dioxide 25, BUN 64, creatinine 1.65. Calcium 8.2. BNP is showing trending down at 1550 from initially [id number]. MICROBIOLOGY: Blood cultures remain negative at 48 hours. RADIOLOGY: Chest x-ray single view chest shows a right perihilar and basilar infiltrate still present with interval improvement. Continued followup suggested. ASSESSMENT: 1. Right lower lobe pneumonia community acquired requiring aggressive management with parenteral antibiotics. 2. Leukocytosis with bandemia secondary to #1 showing improvement after initiation of antibiotics with infection including pneumonia and bursitis and cellulitis of the right forearm. 3. 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 4. Elevated BNP with no mention of a formal diagnosis of congestive heart failure. No echocardiogram available for review but patient showing some bilateral lower extremity pitting edema as well as vascular congestion and some pulmonary edema but continues to show improvement on radiographic studies and continued aggressive diuretic management and 02. . 5. Acute on chronic kidney disease with slight worsening likely secondary to aggressive diuretics with Lasix as well as initiation of vancomycin for treatment of the right arm cellulitis continuing with pharmacy protocol. 6. History of gastroesophageal reflux disease. 7. History of hypertension. 8. History of polymyalgia rheumatica. PLAN: Will continue with aggressive management with both Lasix 40 mg b.i.d. and antibiotic coverage with Rocephin and azithromycin and vancomycin. Her Cabrera catheter remains in place. Anticipate removal tomorrow if she shows continued clinical improvement. I will go ahead and saline lock her as she is having adequate oral intake and plan to plan to repeat a chest x-ray in the morning. Will also follow her CBC and BNP. Until she can transition to outpatient management will continue to monitor and treat as needed. #[id number] [facility]
[2018-10-08] MEDS ORDERED: AZITHROMYCIN IV 500 MG VIAL IVPB ONE (17:49)
[2018-10-08] MEDS ORDERED: SODIUM CHLORIDE 0.9% 250ML 250 ML ONE ×2 (17:49→20:48)
[2018-10-08] MEDS ORDERED: SIMETHICONE 80 MG TAB ONE (20:39)
[2018-10-08] MEDS ORDERED: VANCOMYCIN HCL INJ 1,000 MG VIAL IVPB ONE (20:49)
[2018-10-08] MEDS: ENOXAPARIN SODIUM 30 MG/0.3 ML SYG SUBCU SCH (21:19)
[2018-10-08] MEDS: ATORVASTATIN 20 MG TAB PO SCH (21:19)
[2018-10-08] MEDS: VANCOMYCIN HCL INJ 750 MG in SODIUM CHLORIDE 0.9% 250ML 250 ML IVPB SCH (21:21)
[2018-10-08] MEDS: ALPRAZolam 0.5 MG TAB PO SCH (21:21)
[2018-10-08] MEDS: busPIRone HCL 5 MG TAB PO SCH (21:24)
[2018-10-08] MEDS: ACETAMINOPHEN 325 MG TAB PO PRN (22:35)
[2018-10-09] MEDS: PANTOPRAZOLE SODIUM IV 40 MG VIAL IV SCH (06:02)
[2018-10-09] MEDS: INSULIN LISPRO 100 UNITS/ML PEN SUBCU SCH ×4 (07:33→20:53)
[2018-10-09] MEDS: POTASSIUM CHLORIDE 10 MEQ TAB PO SCH (08:05)
[2018-10-09] MEDS: IPRATROPIUM/ALBUTEROL 3 ML VIAL NEB SCH ×4 (08:31→21:18)
[2018-10-09] MEDS ORDERED: FUROSEMIDE 40 MG TAB ONE (09:35)
[2018-10-09] MEDS ORDERED: SODIUM CHL 0.9% 50ML MIN-BAG+ 50 ML IVPB ONE (09:35)
[2018-10-09] MEDS ORDERED: cefTRIAXone SODIUM 1 GM VIAL ONE (09:35)
[2018-10-09] MEDS: CALCIUM CARBONATE-VITAMIN D 500 MG TAB PO SCH (10:31)
[2018-10-09] MEDS: ASPIRIN (CHEWABLE) 81 MG TAB PO SCH (10:31)
[2018-10-09] MEDS: predniSONE 5 MG TAB PO SCH (10:31)
[2018-10-09] MEDS: RAMIPRIL 2.5 MG CAP PO SCH (10:31)
[2018-10-09] MEDS: FUROSEMIDE 40 MG TAB PO SCH ×2 (10:31→16:58)
[2018-10-09] MEDS: MONTELUKAST 10 MG TAB PO SCH (10:31)
[2018-10-09] MEDS: SODIUM CHLORIDE 0.9% (FLUSH) 10 ML SYG IV SCH ×2 (10:32→20:29)
[2018-10-09] MEDS: cefTRIAXone SODIUM 1 GM in SODIUM CHL 0.9% 50ML MIN-BAG+ 50 ML IVPB SCH (10:32)
[2018-10-09] MEDS: BIFIDOBACTERIUM INFANTIS 4 MG CAP PO SCH ×2 (10:37→20:27)
[2018-10-09] MEDS: METOPROLOL SUCCINATE XL 25 MG TAB PO SCH (10:38)
--- NOTE | 2018-10-09 11:14 | PN ---
SUPERVISING PHYSICIAN: Paresh Briseno MD DATE: 10/09/18 SUBJECTIVE: The patient is lying in bed. She continues to feel somewhat short of breath and was unable to sleep last night. I explained that she had some Xanax ordered to help her sleep and I would order it scheduled tonight. Otherwise, she denies chest pain ,nausea or vomiting, constipation. OBJECTIVE: VITAL SIGNS: She is afebrile. Heart rate 74, blood pressure 157/75, respirations 21, 02 saturation is 93% on 2 1/2 liters nasal cannula. RESPIRATORY: Diminished at the bases but essentially clear to auscultation. CARDIAC: Regular rate and rhythm. GI: Abdomen soft, nondistended, non-tender. Bowel sounds are positive. EXTREMITIES: No cyanosis, clubbing, or edema. Right forearm has some mild erythema and edema, but no tenderness to palpation. NEURO: She is awake, alert and oriented x3. LABORATORY: WBC 11,400 with hemoglobin 9, hematocrit 28.6. She does have a left shift on her differential. Sodium 132, potassium 5, chloride 100, carbon dioxide 24, BUN 60, creatinine 1.53. Preliminary blood cultures show no growth after 48 hours. All other labs and films have been reviewed via the EMR. ASSESSMENT: 1. Right lower lobe pneumonia community acquired requiring aggressive management with parenteral antibiotics. 2. Leukocytosis with bandemia secondary to #1 showing improvement after initiation of antibiotics with infection including pneumonia and bursitis and cellulitis of the right forearm. 3. 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 4. Elevated BNP with no mention of a formal diagnosis of congestive heart failure. No echocardiogram available for review but patient showing some bilateral lower extremity pitting edema as well as vascular congestion and some pulmonary edema but continues to show improvement on radiographic studies and continued aggressive diuretic management and 02. . 5. Acute on chronic kidney disease with slight improvement. Baseline creatinine is 1.6-1.7. Today it is 1.52. 6. History of gastroesophageal reflux disease. 7. History of hypertension. 8. History of polymyalgia rheumatica. PLAN: We will continue present supportive care. I have changed her IV Lasix to p.o. Lasix. I have also ordered bladder training so we can discontinue her Cabrera catheter. I have ordered an extra Xanax scheduled for sleep tonight as well as put her on probiotics. Hopefully, we can discharge her tomorrow or the next day, depending on her clinical progress. I have ordered some routine lab and a chest x-ray for in the morning. We will continue to monitor closely and follow as needed. Dr. Briseno is the collaborating physician available for consultation. #[id number] [facility]
[2018-10-09] MEDS ORDERED: AZITHROMYCIN IV 500 MG VIAL IVPB ONE (16:53)
[2018-10-09] MEDS ORDERED: SODIUM CHLORIDE 0.9% 250ML 250 ML ONE ×2 (16:53→19:43)
[2018-10-09] MEDS: AZITHROMYCIN IV 500 MG in SODIUM CHLORIDE 0.9% 250ML 250 ML IVPB SCH (16:58)
[2018-10-09] MEDS: IV SET AND CAP CHANGE INJ INJ SCH (17:36)
[2018-10-09] MEDS ORDERED: VANCOMYCIN HCL INJ 1,000 MG VIAL IVPB ONE (19:45)
[2018-10-09] MEDS: guaiFENesin W/CODEINE LIQ 10 ML UD PO PRN (20:22)
[2018-10-09] MEDS: ATORVASTATIN 20 MG TAB PO SCH (20:26)
[2018-10-09] MEDS: busPIRone HCL 5 MG TAB PO SCH (20:26)
[2018-10-09] MEDS: ALPRAZolam 0.5 MG TAB PO SCH (20:27)
[2018-10-09] MEDS: ENOXAPARIN SODIUM 30 MG/0.3 ML SYG SUBCU SCH (20:29)
[2018-10-09] MEDS: VANCOMYCIN HCL INJ 750 MG in SODIUM CHLORIDE 0.9% 250ML 250 ML IVPB SCH (20:37)
[2018-10-10] MEDS: ALPRAZolam 0.5 MG TAB PO PRN ×2 (01:02→08:43)
[2018-10-10] MEDS: PANTOPRAZOLE SODIUM IV 40 MG VIAL IV SCH (05:57)
[2018-10-10] MEDS: ACETAMINOPHEN 325 MG TAB PO PRN ×2 (05:58→21:45)
[2018-10-10] MEDS: SODIUM CHLORIDE 0.9% (FLUSH) 10 ML SYG IV PRN (05:58)
--- NOTE | 2018-10-10 06:54 | RAD ---
EXAM DESCRIPTION: Chest,1 View CLINICAL HISTORY:87 years Female, pna Comparison: October 08, 2018 FINDINGS: Enlarged cardiac silhouette, unchanged. Bibasilar opacities. Cardiac pacer device again noted. aortic calcifications. No pleural effusion. No pneumothorax. No acute osseous abnormality. Soft tissues are unremarkable. IMPRESSION: Unchanged enlarged cardiac silhouette, bibasilar opacities representing atelectasis or pneumonia. Electronically signed by: Ricardo Shanks MD 10/10/2018 6:53 AM TEMPERING OVEN OPERATOR
[2018-10-10] MEDS: INSULIN LISPRO 100 UNITS/ML PEN SUBCU SCH ×4 (07:44→21:42)
[2018-10-10] MEDS ORDERED: SODIUM CHL 0.9% 50ML MIN-BAG+ 50 ML IVPB ONE (08:06)
[2018-10-10] MEDS ORDERED: cefTRIAXone SODIUM 1 GM VIAL ONE (08:08)
[2018-10-10] MEDS: POTASSIUM CHLORIDE 10 MEQ TAB PO SCH (08:34)
[2018-10-10] MEDS: RAMIPRIL 2.5 MG CAP PO SCH (08:34)
[2018-10-10] MEDS: cefTRIAXone SODIUM 1 GM in SODIUM CHL 0.9% 50ML MIN-BAG+ 50 ML IVPB SCH (08:35)
[2018-10-10] MEDS: MONTELUKAST 10 MG TAB PO SCH (08:35)
[2018-10-10] MEDS: ASPIRIN (CHEWABLE) 81 MG TAB PO SCH (08:35)
[2018-10-10] MEDS: BIFIDOBACTERIUM INFANTIS 4 MG CAP PO SCH ×2 (08:35→21:00)
[2018-10-10] MEDS: CALCIUM CARBONATE-VITAMIN D 500 MG TAB PO SCH (08:35)
[2018-10-10] MEDS: FUROSEMIDE 40 MG TAB PO SCH ×2 (08:35→17:30)
[2018-10-10] MEDS: METOPROLOL SUCCINATE XL 25 MG TAB PO SCH (08:35)
[2018-10-10] MEDS: predniSONE 5 MG TAB PO SCH (08:35)
[2018-10-10] MEDS ORDERED: MAGNESIUM SULFATE PREMIX 2GM 2 GM in PREMIX BAG 1 BAG IVPB ONE (09:05)
[2018-10-10] MEDS ORDERED: AZITHROMYCIN 250 MG TAB PO ONE (09:09)
[2018-10-10] MEDS: IPRATROPIUM/ALBUTEROL 3 ML VIAL NEB SCH ×4 (09:21→20:18)
[2018-10-10] MEDS: DOXYCYCLINE HYCLATE CAP 100 MG CAP PO SCH ×2 (09:58→21:00)
[2018-10-10] MEDS: CEFDINIR 300 MG CAP PO SCH ×2 (09:58→21:00)
[2018-10-10] MEDS: BENZOCAINE-MENTH LOZ (CEPACOL) 1 EA LOZ MT PRN ×3 (09:59→19:47)
[2018-10-10] MEDS: SODIUM CHLORIDE 0.9% (FLUSH) 10 ML SYG IV SCH ×2 (10:21→21:00)
--- NOTE | 2018-10-10 11:23 | PN ---
DATE: 10/10/18 SUPERVISING PHYSICIAN: Paresh Briseno M.D. SUBJECTIVE: The patient is lying in bed. Her only complaint is that she does have a difficult time sleeping at night. She gets several hours of sleep and then wakes up. She does have Xanax p.r.n. She also has an occasional cough but that has improved. She asked for some cough drops. Her son is at the bedside and his questions were answered about his mother's condition. OBJECTIVE: VITAL SIGNS: Temperature 98.3, heart rate 73, blood pressure 155/77, respiratory rate 20, O2 sat is 94% on 1.5 liters nasal cannula. RESPIRATORY: Diminished throughout but no wheezing or crackles noted. CARDIAC: Regular rate and rhythm. GASTROINTESTINAL: Abdomen is soft, nondistended, non-tender. Bowel sounds are positive. EXTREMITIES: No clubbing, cyanosis or edema to the bilateral lower extremities. She has some slight redness and slight swelling to that right forearm but it is much improved from yesterday. NEUROLOGIC: She is awake, alert and oriented times three. LABORATORY: WBCs are 10.3 with hemoglobin 9 and hematocrit 27.7. She does have a shift on her differential but it has improved to 79.1%. Sodium 133, potassium 4.8, chloride 99, carbon dioxide 26, BUN 65, creatinine 1.56. Baseline creatinine is about 1.6 to 1.7. Calcium 8.6, magnesium 1.4. Preliminary blood cultures show no growth after 3 days. Chest x-ray shows unchanged enlarged cardiac silhouette, bibasilar opacities representing atelectasis or pneumonia. All other labs and films have been reviewed via the EMR. ASSESSMENT: 1. Right lower lobe pneumonia community acquired initially requiring aggressive management with parenteral antibiotics. Today she has been switched to oral antibiotics. 2. Leukocytosis with bandemia secondary to #1 showing improvement after initiation of antibiotics with infection including pneumonia and bursitis and cellulitis of the right forearm. 3. 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 Today she has been changed to doxycycline. 4. Elevated BNP with no mention of a formal diagnosis of congestive heart failure. No echocardiogram available for review but patient showing some bilateral lower extremity pitting edema as well as vascular congestion and some pulmonary edema but continues to show improvement on radiographic studies and continued aggressive diuretic management and 02. 5. Acute on chronic kidney disease with the patient below baseline creatinine. Today it is 1.56. Her baseline creatinine is 1.6 to 1.7. 6. History of gastroesophageal reflux disease. 7. History of hypertension. 8. History of polymyalgia rheumatica. PLAN: We will continue present supportive care. Most likely plan for discharge tomorrow. She has [facility] and she also has an appointment with Dr. Palma, her blow torch operator, in the next few weeks. She does not know the date. She will have to get a followup with Dr. Siddiqui upon discharge. I have given her magnesium replacement and will check her labs in the morning. I have also changed her from IV Zithromax to oral Zithromax. Her Ceftriaxone has been changed to Cefdinir p.o. and her vancomycin has been discontinued. I have started her on doxycycline. In addition to lab we will also do a chest x-ray tomorrow and hopefully she will improve overnight and tolerate her p.o. medications without problem. We will continue to monitor closely and follow as needed. Dr. Briseno is the collaborating physician available for consultation. #[id number] [facility]
[2018-10-10] MEDS: MAGNESIUM CHLORIDE 64 MG TAB PO SCH ×2 (12:09→17:30)
[2018-10-10] MEDS: ALPRAZolam 0.5 MG TAB PO SCH (21:00)
[2018-10-10] MEDS: ENOXAPARIN SODIUM 30 MG/0.3 ML SYG SUBCU SCH (21:00)
[2018-10-10] MEDS: busPIRone HCL 5 MG TAB PO SCH (21:00)
[2018-10-10] MEDS: ATORVASTATIN 20 MG TAB PO SCH (21:00)
[2018-10-11] MEDS: guaiFENesin W/CODEINE LIQ 10 ML UD PO PRN (00:37)
[2018-10-11] MEDS: ALPRAZolam 0.5 MG TAB PO PRN (01:05)
[2018-10-11] MEDS ORDERED: PANTOPRAZOLE SODIUM TAB 40 MG PO SCH (06:30)
--- NOTE | 2018-10-11 07:01 | RAD ---
EXAM DESCRIPTION: Chest,1 View CLINICAL HISTORY:87 years Female, pna Comparison: October 10, 2018 FINDINGS: Unchanged small pleural effusions and bibasilar opacities representing atelectasis or pneumonia. Unchanged enlarged cardiac silhouette. Cardiac pacer device again noted. Aortic calcifications. No pneumothorax. Electronically signed by: Ricardo Shanks MD 10/11/2018 7:00 AM COMMERCIAL MANAGEMENT ACCOUNTANT
[2018-10-11] MEDS: INSULIN LISPRO 100 UNITS/ML PEN SUBCU SCH ×2 (08:07→12:26)
[2018-10-11] MEDS: MAGNESIUM CHLORIDE 64 MG TAB PO SCH (08:08)
[2018-10-11] MEDS: POTASSIUM CHLORIDE 10 MEQ TAB PO SCH (08:08)
[2018-10-11] MEDS: IPRATROPIUM/ALBUTEROL 3 ML VIAL NEB SCH ×2 (08:33→11:49)
[2018-10-11] MEDS: RAMIPRIL 2.5 MG CAP PO SCH (09:49)
[2018-10-11] MEDS: CEFDINIR 300 MG CAP PO SCH (09:49)
[2018-10-11] MEDS: FUROSEMIDE 40 MG TAB PO SCH (09:49)
[2018-10-11] MEDS: CALCIUM CARBONATE-VITAMIN D 500 MG TAB PO SCH (09:49)
[2018-10-11] MEDS: predniSONE 5 MG TAB PO SCH (09:49)
[2018-10-11] MEDS: DOXYCYCLINE HYCLATE CAP 100 MG CAP PO SCH (09:49)
[2018-10-11] MEDS: METOPROLOL SUCCINATE XL 25 MG TAB PO SCH (09:49)
[2018-10-11] MEDS: ASPIRIN (CHEWABLE) 81 MG TAB PO SCH (09:49)
[2018-10-11] MEDS: BIFIDOBACTERIUM INFANTIS 4 MG CAP PO SCH (09:49)
[2018-10-11] MEDS: MONTELUKAST 10 MG TAB PO SCH (09:49)
[2018-10-11] MEDS: SODIUM CHLORIDE 0.9% (FLUSH) 10 ML SYG IV SCH (09:54)
[2018-10-11 10:14] VITALS: BP 166/80; TEMP 97.9
[2018-10-11 11:52] VITALS: O2SAT 96
--- NOTE | 2018-10-19 08:11 | DS ---
SUPERVISING PHYSICIAN: Sandoval Buchanan MD DISCHARGE DIAGNOSIS: 1. Right lower lobe pneumonia community acquired initially requiring aggressive management with parenteral antibiotics. She has been switched to oral antibiotics. 2. Leukocytosis with bandemia secondary to #1 showing improvement after initiation of antibiotics with infection including pneumonia, bursitis and cellulitis of the right forearm. 3. 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 She has been changed to doxycycline. 4. Elevated BNP with no mention of a formal diagnosis of congestive heart failure. No echocardiogram available for review but patient showing some bilateral lower extremity pitting edema as well as vascular congestion and some pulmonary edema but continues to show improvement on radiographic studies and continued aggressive diuretic management and 02. 5. Acute on chronic kidney disease with the patient below baseline creatinine. Her baseline creatinine is 1.6 to 1.7. 6. History of gastroesophageal reflux disease. 7. History of hypertension. 8. History of polymyalgia rheumatica. HISTORY OF PRESENT ILLNESS: This is an 87-year-old female patient referred to the Emergency Room by Home Health nurse on the date of admission after left upper extremity swelling. It had been present for 2 to 3 days prior to her admission. She also had esperanza running a fever. In the Emergency Room, her temperature was 100.5 and 02 saturation showing 85% on room air. She had significant leukocytosis of 24,600 with a left shift and bandemia. Her electrolytes were within normal limits. BNP was elevated at 2,180 with troponin of 0.04. Her urinalysis showed 300 of protein with trace intact blood, otherwise within normal limits. Chest x-ray was completed and there was note of a right lower lobe consolidation with pneumonia with a large heart with vascular congestion and mild bilateral pulmonary edema. The right forearm was swollen, so x-ray was completed and did not show any acute fractures. She was given Rocephin and azithromycin. Her lactic acid was within normal limits at 1.2. She was given 40 of Lasix IV and was admitted for exacerbation of chronic obstructive pulmonary disease with right lower lobe pneumonia and mild exacerbation of her congestive heart failure as well as cellulitis of the right arm. HOSPITAL COURSE: She was placed on the pneumonia guidelines and placed on sliding scale insulin with blood sugars a.c. and h.s. She was given Protonix for ulcer prophylaxis as well as Lovenox for DVT. Cultures were done prior to antibiotic therapy and she progressively improved clinically. Cabrera catheter was placed to get more accurate I&Os. Her cultures continued to be monitored. Vancomycin was added due to the cellulitis of the right arm. Bladder training was also started. Her Cabrera catheter will be discontinued and she will be discharged home today in stable condition. LABORATORY: White count on admission was 24,600 and the day prior to admission, it had normalized to 10,300. Her hemoglobin and hematocrit stabilized around 9 and 28.6. She still has slight shift on differential, but it improved over the course of her stay. Electrolytes were stable today except for her sodium and chloride were slightly low at 134 and 99, respectively. Creatinine was 1.45 today and that is below her normal baseline. Her magnesium was 1.6, but she received supplementation. Chest x-ray was improved from her admitting x-ray, but she continued to have small bibasilar pneumonia and will need followup as an outpatient. DISCHARGE PLAN: The patient will be discharged home in stable condition. She has home oxygen and she is encouraged to use it. She will need to followup with Dr. Siddiqui, her primary care physician, within one to two weeks. She is to continue her previous home medications. Her IV Zithromax was changed to oral Zithromax. Her ceftriaxone was changed to cefdinir. Her vancomycin was discontinued and she was started on doxycycline. She has [facility]. On discharge, she will need to have a CMP and magnesium checked as well as chest x-ray on her followup. She is to return to the hospital or call Dr. Siddiqui's office for any problems or complications. DISCHARGE MEDICATIONS: 1. Aspirin. 2. Omeprazole. 3. Buspirone. 4. Micro-K. 5. Xanax. 6. Singulair. 7. Lipitor. 8. Metoprolol. 9. Ramipril. 10. Lasix. 11. Prednisone. 12. Align. 13. Cefdinir. 14. Doxycycline. 15. Magnesium chloride. [facility][id number] [facility]
== END 2018-10-11 13:30 | disposition home health service (06) | DRG 194 ==
LOC: ER 12:35 → MS 18:02
PROVIDERS: ADMIT Nurse Practitioner Family; ATTEND Nurse Practitioner Family
DX: J18.9 Pneumonia, unspecified organism (principal); J44.0 Chronic obstructive pulmonary disease with (acute) lower respiratory infection; J44.1 Chronic obstructive pulmonary disease with (acute) exacerbation; L03.113 Cellulitis of right upper limb; N17.9 Acute kidney failure, unspecified; K21.9 Gastro-esophageal reflux disease without esophagitis; I12.9 Hypertensive chronic kidney disease with stage 1 through stage 4 chronic kidney disease, or unspecified chronic kidney disease; N18.9 Chronic kidney disease, unspecified; M35.3 Polymyalgia rheumatica; M70.31 Other bursitis of elbow, right elbow; E86.0 Dehydration; Z79.82 Long term (current) use of aspirin

== ENCOUNTER 2018-11-06 17:47 | Inpatient (IN) | payer MEDICARE ==
--- NOTE | 2018-11-06 18:06 | ED.PDOC ---
History of Present Illness - General Chief Complaint: Neuro Symptoms/Deficits Stated Complaint: confusion for 2 days Time Seen by Provider: 11/06/18 17:49 Source: patient, family, EMS Exam Limitations: clinical condition - History of Present Illness Initial Comments: Patient presents by EMS from home for AMS. Her son told EMS that she was not making sense when she talks. Paramedics are familiar with the patient and believe she is at her baseline. No other history is available. Patient is alert but does say some non-sensical things during conversation. Timing/Duration: changing over time - at least two days but possibly weeks Severity: mild Improving Factors: nothing Worsening Factors: nothing Associated Symptoms: denies symptoms Allergies/Adverse Reactions: Allergies NO KNOWN ALLERGY Allergy (Verified 11/06/18 18:09) Home Medications: Ambulatory Orders Aspirin [Baby Aspirin] 81 mg PO QD 07/23/14 Buspirone HCl 10 mg PO BEDTIME 09/14/15 Omeprazole 20 mg PO DAILY 09/14/15 Potassium Chloride [Micro-K] 10 meq PO DAILY 12/02/15 ALPRAZolam [Xanax] 0.25 mg PO BEDTIME 12/06/17 Atorvastatin Calcium [Lipitor] 20 mg PO BEDTIME 12/06/17 Metoprolol Succinate [Metoprolol Succinate ER] 25 mg PO DAILY 12/06/17 Montelukast [Singulair] 10 mg PO DAILY 12/06/17 Ramipril 10 mg PO QAM 12/06/17 Furosemide [Lasix] 40 mg PO BID 10/06/18 Non-Formulary Medication 50 mg PO DAILY 10/06/18 Prednisone 5 mg PO DAILY 10/06/18 Desvenlafaxine Succinate [Pristiq] 50 mg PO DAILY 11/06/18 Review of Systems - Review of Systems Constitutional: States: no symptoms reported EENTM: States: no symptoms reported Respiratory: States: no symptoms reported Cardiology: States: no symptoms reported Gastrointestinal/Abdominal: States: no symptoms reported Genitourinary: States: no symptoms reported Musculoskeletal: States: no symptoms reported Skin: States: no symptoms reported Neurological: States: see HPI Endocrine: States: no symptoms reported Hematologic/Lymphatic: States: no symptoms reported Past Medical History (General) - Patient Medical History Hx Seizures: No Hx Stroke: Yes Hx Dementia: No Hx Asthma: No Hx of COPD: No Hx Cardiac Disorders: Yes Hx Congestive Heart Failure: No Hx Pacemaker: Yes Hx Hypertension: No Hx Thyroid Disease: No Hx Diabetes: Yes - type 2 Hx Gastroesophageal Reflux: Yes Hx Renal Disease: No Hx Cancer: No Hx of HIV: No Hx Hepatitis C: No Hx MRSA: No Surgical History: cholecystectomy, Hysterectomy - Vaccination History Hx Tetanus, Diphtheria Vaccination: Yes Hx Influenza Vaccination: No Hx Pneumococcal Vaccination: Yes - Social History Hx Tobacco Use: No Hx Chewing Tobacco Use: No Hx Alcohol Use: No Hx Substance Use: No Hx Substance Use Treatment: No Hx Depression: No Hx Physical Abuse: No Hx Emotional Abuse: No Hx Suspected Abuse: No - Female History Patient is a Female of Child Bearing Age (10 -59 yrs old): No Patient : No Family Medical History - Family History Mother Living Status: Hx Family Cancer: Yes Physical Exam - Physical Exam General Appearance: Alert Eye Exam: bilateral normal Ears, Nose, Throat: normal ENT inspection Neck: non-tender, full range of motion, supple Respiratory: other - distant breath sounds in all lung aguirre Cardiovascular/Chest: normal peripheral pulses, regular rate, rhythm, other - 1+ pitting edema, BLE to knee Gastrointestinal/Abdominal: normal bowel sounds, non tender, soft Back Exam: normal inspection, no CVA tenderness Extremity: pedal edema Neurologic: security administrator II-XII nml as tested, no motor/sensory deficits, alert - alert to name and place but not year Skin Exam: normal color Lymphatic: no adenopathy Progress - Progress Progress: 11/06/18 20:43 Laboratory Tests 11/06/18 11/06/18 11/06/18 18:09 18:09 18:09 WBC 7.3 RBC 4.18 L Hgb 12.6 Hct 39.5 MCV 94.4 MCH 30.1 MCHC 31.9 L RDW 15.8 H Plt Count 282 MPV 9.3 Absolute Neuts (auto) 6.10 Absolute Lymphs (auto) 0.80 L Absolute Monos (auto) 0.30 Absolute Eos (auto) 0.00 Absolute Basos (auto) 0.00 Neutrophils % 84.0 H Lymphocytes % 10.7 L Monocytes % 4.6 Eosinophils % 0.1 L Basophils % 0.6 pCO2 pO2 HCO3 ABG pH ABG O2 Saturation ABG Base Excess ABG Deoxyhemoglobin Oxyhemoglobin % Carboxyhemoglobin % Methemoglobin % Sat Calc Total Hemoglobin Sodium 134 L Potassium 5.4 H Chloride 98 L Carbon Dioxide 23 Anion Gap 18.4 H BUN 56 H Creatinine 2.03 H BUN/Creatinine Ratio 27.6 H POC Glucose Random Glucose 153 H Serum Osmolality 286.7 Calcium 8.8 Total Bilirubin 0.6 AST 27 ALT 28 Alkaline Phosphatase 84 Creatine Kinase CK-MB (CK-2) CK-MB (CK-2) % Troponin I B-Natriuretic Peptide Serum Total Protein 6.2 L Albumin 3.1 L Globulin 3.1 Albumin/Globulin Ratio 1.0 L TSH 5.61 H Thyroxine (T4) 8.34 11/06/18 11/06/18 11/06/18 18:09 19:14 19:33 WBC RBC Hgb Hct MCV MCH MCHC RDW Plt Count MPV Absolute Neuts (auto) Absolute Lymphs (auto) Absolute Monos (auto) Absolute Eos (auto) Absolute Basos (auto) Neutrophils % Lymphocytes % Monocytes % Eosinophils % Basophils % pCO2 40 pO2 111 H* HCO3 22.6 ABG pH 7.370 ABG O2 Saturation 99.2 H ABG Base Excess -2.0 ABG Deoxyhemoglobin 0.8 Oxyhemoglobin % 96.7 Carboxyhemoglobin % 0.8 Methemoglobin % Sat 1.7 H Calc Total Hemoglobin 11.7 L Sodium Potassium Chloride Carbon Dioxide Anion Gap BUN Creatinine BUN/Creatinine Ratio POC Glucose 153 H Random Glucose Serum Osmolality Calcium Total Bilirubin AST ALT Alkaline Phosphatase Creatine Kinase 25 L CK-MB (CK-2) 4.1 CK-MB (CK-2) % Not Reportable Troponin I 0.05 B-Natriuretic Peptide > 5000.0 H* Serum Total Protein Albumin Globulin Albumin/Globulin Ratio TSH Thyroxine (T4) CXR showed bilateral opacities in the lung bases. BNP > 5000. Patient's oxygen saturations intermittently dipped to 80%. EKG showed NSR with 1st degree A-V block. No ST changes. LBBB was present on 09/2018. Troponin negative. Patient given Lasix 60 mg IV x one and admitted for CHF exacerbation, edema, and intermittent hypoxia. Departure - Departure Clinical Impression: CHF (congestive heart failure), Hypoxia, Edema Disposition: Admit Patient Condition: Fair Departure Forms: ED Discharge - Pt. Copy, Patient Portal Self Enrollment Diet: other - as per hospitalist Activity: other - as per hospitalist Referrals: YANCY REID MD [Primary Care Provider] - 1-2 Weeks Home Medications: Ambulatory Orders Aspirin [Baby Aspirin] 81 mg PO QD 07/23/14 Buspirone HCl 10 mg PO BEDTIME 09/14/15 Omeprazole 20 mg PO DAILY 09/14/15 Potassium Chloride [Micro-K] 10 meq PO DAILY 12/02/15 ALPRAZolam [Xanax] 0.25 mg PO BEDTIME 12/06/17 Atorvastatin Calcium [Lipitor] 20 mg PO BEDTIME 12/06/17 Metoprolol Succinate [Metoprolol Succinate ER] 25 mg PO DAILY 12/06/17 Montelukast [Singulair] 10 mg PO DAILY 12/06/17 Ramipril 10 mg PO QAM 12/06/17 Furosemide [Lasix] 40 mg PO BID 10/06/18 Non-Formulary Medication 50 mg PO DAILY 10/06/18 Prednisone 5 mg PO DAILY 10/06/18 Desvenlafaxine Succinate [Pristiq] 50 mg PO DAILY 11/06/18
[2018-11-06] MEDS ORDERED: SODIUM CHLORIDE 0.9% 1000ML 1,000 ML IVS ONE (18:54)
--- NOTE | 2018-11-06 18:57 | CT ---
PROCEDURE: Head CLINICAL HISTORY: 88 years Female AMS COMPARISON: 10/31/2016. TECHNIQUE: Contiguous axial CT images obtained through the brain without IV contrast. This exam was performed according to our department optimization program which includes automated exposure control, adjustment of the mA and/or kv according to patient size and/or use of iterative reconstruction technique. FINDINGS: The ventricles and sulci are prominent consistent with atrophic changes. Microvascular ischemic changes. No mass lesions. No acute hemorrhage. Atherosclerotic calcifications. No fluid or significant mucosal thickening in the visualized paranasal sinuses. No depressed calvarial fractures. IMPRESSION: Atrophy and microvascular ischemic changes. No acute intracranial abnormality is identified. Electronically signed by: Huseyin Morales MD 11/06/2018 6:56 PM [employer]
--- NOTE | 2018-11-06 19:31 | RAD ---
EXAM DESCRIPTION: Chest,1 View CLINICAL HISTORY:88 years Female, altered mental status Comparison: October 11, 2018 FINDINGS: Bibasilar patchy opacities representing atelectasis, scarring or pneumonia. Cannot exclude small pleural effusions. Enlarged cardiac silhouette, unchanged from prior. Left cardiac pacing device again noted. Aortic calcifications. No pneumothorax. Electronically signed by: Ricardo Shanks MD 11/06/2018 7:30 PM [employer] GRINDER
[2018-11-06] MEDS ORDERED: FUROSEMIDE INJ 40 MG/4 ML VIAL IV ONE (20:27)
--- NOTE | 2018-11-06 21:51 | HP ---
SUPERVISING PHYSICIAN: Bruce Rai MD CHIEF COMPLAINT: Increasing confusion over two days. HISTORY OF PRESENT ILLNESS: Ms. Santiago is an 88-year-old female patient who lives at home. She was brought to the Emergency Department by EMS for acute mental status change. Her son reports that she has not been making any sense and having nonsensical conversations. The paramedics are very familiar with the patient and noted that the patient was close to her normal baseline mental status. In the Emergency Room, laboratory studies were completed showing white count 7,300 with a left shift. Blood gas analysis showed pH 7.37, pO2 111, pCO2 40, bicarb 22.6. Chemistries showed an elevated potassium of 5.4, sodium 134, BUN elevated at 56, creatinine 2.03. Liver functions were within normal limits. Troponin 0.05, but her BNP was greater than 5000. TSH elevated at 5.61. Urinalysis showed greater than 300 protein, small amount of blood, small amount of bilirubin with 3 to 5 RBCs, 1 to 3 WBCs, 5 to 10 epithelials with no bacteria seen on microscopic exam. She had a chest x-ray, single view, that per radiologic interpretation showed bibasilar patchy opacities representing atelectasis, scarring or pneumonia. The cardiac silhouette was noted to be enlarged. She also had a CT of the head without contrast which per radiologic interpretation showed atrophy and microvascular ischemic changes, but no acute intracranial antibiotics. Dr. Ramirez has now requested that the patient be admitted for exacerbation of congestive heart failure and acute mental status changes with concerns for developing community acquired pneumonia. She was given 60 mg of Lasix in the Emergency Room with a Cabrera catheter placed and is now going to be admitted. She is admitted in stable condition. PAST MEDICAL HISTORY: 1. Gastroesophageal reflux disease. 2. Hypertension. 3. Polymyalgia rheumatica. 4. Chronic kidney disease. 5. Alzheimer's dementia. PAST SURGICAL HISTORY: 1. Appendectomy. 2. Cholecystectomy. 3. Hysterectomy. HOME MEDICATIONS: 1. Ramipril 10 mg daily. 2. Prednisone 5 mg daily. 3. Micro-K 10 mEq daily. 4. Omeprazole 20 mg daily. 5. Singulair 10 mg daily. 6. Metoprolol succinate 25 mg daily. 7. Lasix 40 mg b.i.d. 8. Pristiq 15 mg daily. 9. Buspirone 10 mg daily. 10. Lipitor 20 mg daily. 11. Baby aspirin 81 mg daily. 12. Xanax 0.25 mg at bedtime. ALLERGIES: NO KNOWN DRUG ALLERGIES. FAMILY HISTORY: Positive for diabetes, coronary artery disease, lung disease, cancer and strokes. SOCIAL HISTORY: The patient lives in [place] with her son. She has never drank or smoked and does not use illicit drugs. 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 REVIEW OF SYSTEMS: CONSTITUTIONAL: Negative for fevers, chills, or unintentional weight loss. HEENT: Negative for nasal congestion, earache, sore throat. Positive for decreased hearing and vision. CARDIOVASCULAR: Negative for chest pain, palpitations or syncopal episodes. GASTROINTESTINAL: Negative for nausea, vomiting, diarrhea. GENITOURINARY: Negative for dysuria, hematuria, polyuria. MUSCULOSKELETAL: History of polymyalgia rheumatica, but negative for reported current back pain, joint swelling or neck pain. NEUROLOGIC: As noted in history of present illness, increasing confusion, but negative for ataxia, seizures, vision changes or headaches. PHYSICAL EXAMINATION: VITAL SIGNS: Temperature 96.0. Pulse 74. Blood pressure 164/90. Respirations 18. Saturation 95% on room air. Admission weight 65.5 kg. GENERAL: The patient appears to be very frail and of advanced age. She is alert, somewhat confused, but according to Dr. Rai as well as I have seen her in the past, she does appear to be fairly normal baseline status in regards to her mentation. HEENT: Tympanic membranes clear bilaterally. Oropharynx is pink, moist without any lesions. NECK: Supple, nontender with full range of motion. No jugular venous distention noted. RESPIRATORY: Lungs diminished towards the bases and very distant with very faint rhonchi heard bilaterally. CARDIOVASCULAR: Regular rate and rhythm with noted II/ systolic ejection murmur with no rubs noted. ABDOMEN: Soft, nontender. Positive bowel sounds. EXTREMITIES: She moves all extremities ad zoraida. There is notable swelling to the left elbow that is due to chronic bursitis. There is 1+ pitting edema of bilateral lower extremities to the knee. NEUROLOGIC: Cranial nerves II-XII are grossly intact. There are no notable motor or sensory deficits. The patient is alert to her name, but was not aware that she was in the hospital and appears to be back to baseline mental status. SKIN: [place], warm and dry. No notable lesions or rashes. LABORATORY: CBC showed white count 7,300, hemoglobin 12.6, hematocrit 39.5, platelet count 282,000. Differential showed a left shift. Blood gas analysis showed on nasal cannula at 2 liters pH 7.37, pO2 111, bicarb 22.6, pCO2 40, saturation 99% with base excess -2. Chemistries showed electrolyte imbalance with sodium 134, potassium 5.4, chloride 98, elevated anion gap 18.4, BUN 66, creatinine 2.03, glucose 153, calcium 8.3. Liver functions within normal limits. Troponin 0.05. TSH elevated at 5.6, BNP elevated at greater than 5000. Urinalysis showed greater than 300 protein, small amount of blood, small amount of bilirubin with microscopic revealing 3 to 5 RBCs, 1 to 3 WBCs, 5 to 10 epithelials with no bacteria, 1 to 3 hyaline casts. RADIOLOGY: Chest x-ray in the Emergency Room prior to admission, single-view, shows bibasilar patchy opacities representing atelectasis, scarring or pneumonia, cannot exclude small pleural effusions. CT of the head without contrast was without any acute findings. There was note of atrophy and microvascular ischemic changes. ASSESSMENT: 1. Acute exacerbation of chronic obstructive pulmonary disease with concerns for developing pneumonia. 2. Elevated BNP with concern for acute on chronic congestive heart failure with no formal echocardiogram available at time of admission with the patient being hypoxic on room air and having bilateral pedal edema. 3. Acute on chronic kidney disease with mild exacerbation, likely due to dehydration from intravascular dehydration from her congestive heart failure. 4. Acute mental status change of uncertain etiology, possibly due to some exacerbation of her chronic obstructive pulmonary disease with the patient appearing to be back to baseline levels. 5. Electrolyte imbalance to include hyponatremia and hyperkalemia, probably due to underlying dehydration. 6. History of hypertension. 7. History of polymyalgia rheumatica. PLAN: The patient is going to be admitted to the hospital for exacerbation of congestive heart failure. We will need to look for echocardiogram as there is no formal diagnosis listed in her past medical history. She was given 60 mg of Lasix in the Emergency Room. This will be continued with 40 mg IV b.i.d. as well as we will put her on fluid restrictions of less than 1500 mL per 24 hours. We will start her on some IV fluids lat a slow rate with D5 normal saline at 60. We will also start her on nitro patch to assist with some of the hypertension and in efforts to decrease the right sided pressures. We will resume home medications when they have been updated and verified. We will start her on antibiotics for coverage for concern of pneumonia with azithromycin and Rocephin and put her on aggressive pulmonary hygiene with DuoNeb treatments q.i.d. We will anticipate her length of stay to be at least two or three days. Until she can transition to outpatient management, we will continue to monitor and treat as needed. #[id number] [facility]
[2018-11-06] MEDS ORDERED: ALBUTEROL SULFATE 2.5 MG/3 ML VIAL NEB PRN (22:20)
[2018-11-06] MEDS ORDERED: SODIUM CHLORIDE 0.9% (FLUSH) 10 ML SYG IV PRN (22:20)
[2018-11-06] MEDS ORDERED: NITROGLYCERIN 0.4 MG 25 EA TAB SL PRN (22:20)
[2018-11-06] MEDS ORDERED: NITROGLYCERIN 0.4 MG/HR PATCH TOP SCH (23:00)
[2018-11-06] MEDS ORDERED: SODIUM CHL 0.9% 50ML MIN-BAG+ 50 ML IVPB ONE (23:30)
[2018-11-06] MEDS ORDERED: cefTRIAXone SODIUM 1 GM VIAL ONE (23:30)
[2018-11-06] MEDS: cefTRIAXone SODIUM 1 GM in SODIUM CHL 0.9% 50ML MIN-BAG+ 50 ML IVPB SCH (23:32)
[2018-11-06] MEDS: IV SET AND CAP CHANGE INJ INJ SCH (23:38)
[2018-11-07] MEDS ORDERED: SODIUM CHLORIDE 0.9% 250ML 250 ML ONE ×2 (00:07→19:47)
[2018-11-07] MEDS ORDERED: AZITHROMYCIN IV 500 MG VIAL IVPB ONE ×2 (00:07→19:49)
[2018-11-07] MEDS: AZITHROMYCIN IV 500 MG in SODIUM CHLORIDE 0.9% 250ML 250 ML IVPB SCH ×2 (00:09→22:35)
--- NOTE | 2018-11-07 06:50 | RAD ---
EXAM DESCRIPTION: Chest,1 View CLINICAL HISTORY:88 years Female, Pneumonia Comparison: November 06, 2018 FINDINGS: Enlarged cardiac silhouette with mild vascular congestion. Minimal bibasilar opacities, similar to prior representing atelectasis, scarring or pneumonia. There are 2 calcifications. Left cardiac pacer device noted. IMPRESSION: Position prior with minimal bibasilar patchy opacities representing atelectasis or pneumonia. Enlarged cardiac silhouette with vascular congestion, unchanged. Electronically signed by: Ricardo Shanks MD 11/07/2018 6:49 AM [employer]
[2018-11-07] MEDS: IPRATROPIUM/ALBUTEROL 3 ML VIAL INH SCH ×4 (08:20→20:40)
[2018-11-07] MEDS ORDERED: POTASSIUM CHLORIDE 10 MEQ TAB PO ONE (08:27)
[2018-11-07] MEDS ORDERED: RAMIPRIL 5 MG CAP ONE ×2 (08:27)
[2018-11-07] MEDS ORDERED: NON-FORMULARY MEDICATION 1 EA MIS PO SCH (09:00)
[2018-11-07] MEDS: MONTELUKAST 10 MG TAB PO SCH (09:29)
[2018-11-07] MEDS: METOPROLOL SUCCINATE XL 25 MG TAB PO SCH (09:29)
[2018-11-07] MEDS: RAMIPRIL 5 MG CAP PO SCH (09:29)
[2018-11-07] MEDS: POTASSIUM CHLORIDE 10 MEQ TAB PO SCH (09:30)
[2018-11-07] MEDS: predniSONE 5 MG TAB PO SCH (09:30)
[2018-11-07] MEDS: OMEPRAZOLE CAP 20 MG CAP PO SCH (09:30)
[2018-11-07] MEDS: FUROSEMIDE INJ 40 MG/4 ML VIAL IV SCH ×2 (09:32→16:58)
[2018-11-07] MEDS: SODIUM CHLORIDE 0.9% (FLUSH) 10 ML SYG IV SCH ×2 (09:32→20:36)
[2018-11-07] MEDS: NON-FORMULARY MEDICATION 1 EA MIS (Desvenlafaxine Succinate [Pristiq] 50 MG) PO SCH (09:33)
[2018-11-07] MEDS: ASPIRIN (CHEWABLE) 81 MG TAB PO SCH (09:38)
[2018-11-07] MEDS: REMOVE OLD PATCH TOP SCH (10:12)
[2018-11-07] MEDS: DEX 5% W/NACL 0.9% 1000ML 1,000 ML IVS PRN (19:10)
[2018-11-07] MEDS ORDERED: SODIUM CHL 0.9% 50ML MIN-BAG+ 50 ML IVPB ONE (19:47)
[2018-11-07] MEDS ORDERED: cefTRIAXone SODIUM 1 GM VIAL ONE (19:48)
[2018-11-07] MEDS: MORPHINE SULFATE INJ 10 MG/ML VIAL IV PRN (19:52)
[2018-11-07] MEDS: busPIRone HCL 5 MG TAB PO SCH (20:36)
[2018-11-07] MEDS: ALPRAZolam 0.25 MG TAB PO SCH (20:36)
[2018-11-07] MEDS: NITROGLYCERIN 0.4 MG/HR PATCH TOP SCH (20:36)
[2018-11-07] MEDS: ATORVASTATIN 20 MG TAB PO SCH (20:36)
[2018-11-07] MEDS: cefTRIAXone SODIUM 1 GM in SODIUM CHL 0.9% 50ML MIN-BAG+ 50 ML IVPB SCH (21:51)
--- NOTE | 2018-11-07 22:35 | PN ---
DATE: 11/07/18 SUPERVISING PHYSICIAN: Pradeep Rai M.D. SUBJECTIVE: The patient is resting comfortably this morning. She denies any significant shortness of breath. She is wondering why she is in the hospital. She is a little confused but very pleasant. OBJECTIVE: VITAL SIGNS: Temperature 98.3, pulse 68, blood pressure 124/75, respirations 20, satting 90% on nasal cannula on 2 liters. I's and O's show a negative balance of 740. Weight is 55.5 kg which actually shows she has gained a little weight since admission. GENERAL: The patient is resting comfortably. She is alert. She is pleasantly confused which is near her baseline mental status. CHEST: Lungs continue to be diminished towards the bases with no notable rhonchi heard today. HEART: Regular rate and rhythm with a notable 2/6 systolic murmur. ABDOMEN: Remains soft, non-tender. Positive bowel sounds. EXTREMITIES: Continued to 1+ pitting edema bilaterally. NEUROLOGIC: She is alert to herself, otherwise confused to location but again appears to be at her baseline mental status with no other neurological deficits noted. LABORATORY: White count 10,500, hemoglobin 11.9, hematocrit 37.0, platelet count 235,000. Differential shows today to have an improving left shift with chemistry showing normal electrolytes, potassium 4.9. BUN remains elevated at 59 as well as creatinine has shown very minimal improvement to 2.02. Liver functions show just a slightly elevated AST at 46. Calcium 8.6. MICROBIOLOGY: No microbiology specimens are pending. RADIOLOGY: Chest x-ray this morning single view per radiology interpretation shows position prior with minimal basilar opacities representing atelectasis or pneumonia with enlarged cardiac silhouette with vascular congestion essentially unchanged. ASSESSMENT: 1. Acute exacerbation of chronic obstructive pulmonary disease with possible community acquired pneumonia. The patient is on aggressive pulmonary hygiene and parenteral antibiotics. 2. Acute on chronic congestive heart failure with elevated BNP, although the patient has no formal diagnosis and no echocardiogram is available at time of admission with the patient having a BNP of over 5,000. 3. Acute on chronic kidney disease with mild exacerbation, probably a prerenal azotemic state due to dehydration from intravascular dehydration from congestive heart failure showing slight improvement with fluids and diuresis. 4. Acute mental status change possibly due to some mild dehydration and improving with initiation of treatment showing to be near baseline status. 5. Electrolyte imbalance with hyponatremia and hyperkalemia from underlying dehydration now improved with fluids. 6. History of hypertension. 7. History of polymyalgia rheumatica. PLAN: Will continue with current plan of care at this point with diuresis with Lasix 40 mg every 12 hours IV as well as will restrict her fluids to 1500 for 24 hours. Will continue with slow IV fluids again with D5 normal saline at 60 with monitoring her I's and O's closely. I will continue with a Nitro patch to assist with decreasing some right sided pressures. Certainly as she shows decrease in blood pressure will need to discontinue this. Her home medications were resumed. She is on DVT prophylaxis as per protocol. Will continue treatment for possible community acquired pneumonia with Rocephin and azithromycin and aggressive pulmonary hygiene. Until the patient can discharge to outpatient management will continue to monitor and treat as needed. #[id number] [facility]
[2018-11-08] MEDS: OMEPRAZOLE CAP 20 MG CAP PO SCH (06:19)
[2018-11-08] MEDS ORDERED: ENOXAPARIN SODIUM 40 MG/0.4 ML SYG SUBCU ONE (07:20)
[2018-11-08] MEDS: IPRATROPIUM/ALBUTEROL 3 ML VIAL INH SCH ×4 (07:53→20:25)
[2018-11-08] MEDS ORDERED: ENOXAPARIN SODIUM 40 MG/0.4 ML SYG SUBCU SCH (09:00)
[2018-11-08] MEDS: METOPROLOL SUCCINATE XL 25 MG TAB PO SCH (09:08)
[2018-11-08] MEDS: predniSONE 5 MG TAB PO SCH (09:08)
[2018-11-08] MEDS: ASPIRIN (CHEWABLE) 81 MG TAB PO SCH (09:08)
[2018-11-08] MEDS: POTASSIUM CHLORIDE 10 MEQ TAB PO SCH (09:08)
[2018-11-08] MEDS: FUROSEMIDE INJ 40 MG/4 ML VIAL IV SCH ×2 (09:09→17:29)
[2018-11-08] MEDS: RAMIPRIL 5 MG CAP PO SCH (09:09)
[2018-11-08] MEDS: SODIUM CHLORIDE 0.9% (FLUSH) 10 ML SYG IV SCH ×2 (09:10→20:43)
[2018-11-08] MEDS: NON-FORMULARY MEDICATION 1 EA MIS (Desvenlafaxine Succinate [Pristiq] 50 MG) PO SCH (09:22)
[2018-11-08] MEDS: ACETAMINOPHEN 325 MG TAB PO PRN ×2 (09:22→22:41)
[2018-11-08] MEDS: MONTELUKAST 10 MG TAB PO SCH (09:22)
[2018-11-08] MEDS: REMOVE OLD PATCH TOP SCH (09:34)
[2018-11-08] MEDS: DEX 5% W/NACL 0.9% 1000ML 1,000 ML IVS PRN (12:53)
[2018-11-08] MEDS ORDERED: FUROSEMIDE 40 MG TAB ONE (17:12)
[2018-11-08] MEDS: CEFDINIR 300 MG CAP PO SCH (20:37)
[2018-11-08] MEDS: busPIRone HCL 5 MG TAB PO SCH (20:37)
[2018-11-08] MEDS: ATORVASTATIN 20 MG TAB PO SCH (20:37)
[2018-11-08] MEDS: AZITHROMYCIN 250 MG TAB PO SCH (20:38)
[2018-11-08] MEDS: ALPRAZolam 0.25 MG TAB PO SCH (20:38)
[2018-11-08] MEDS: NITROGLYCERIN 0.4 MG/HR PATCH TOP SCH (20:40)
--- NOTE | 2018-11-08 21:40 | PN ---
DATE: 11/08/18 SUPERVISING PHYSICIAN: Pradeep Rai M.D. SUBJECTIVE: The patient is sitting up in her chair in her room. She is eating her meal. She has no complaints. She actually feels much better since her admission. She denies any chest pain, shortness of breath, nausea or vomiting. OBJECTIVE: VITAL SIGNS: Temperature 98.1, heart rate 70, blood pressure 154/71, respiratory rate 18, O2 sat 97% on 1 liter nasal cannula. RESPIRATORY: A few scattered crackles in the upper airways, otherwise clear to auscultation. CARDIAC: regular rate and rhythm. GASTROINTESTINAL: Abdomen is soft, nondistended, non-tender. Bowel sounds are positive. EXTREMITIES: No cyanosis, clubbing or edema. NEUROLOGIC: She is awake, alert and oriented times three. LABORATORY: WBCs are 10.5 with hemoglobin 11.9, hematocrit 37. Neutrophils are normal at 73.2%. Sodium is slightly low at 133 with potassium 4.2, chloride 100, carbon dioxide 25, BUN 60, creatinine 2.12, glucose 192 with calcium 8. All other labs and films have been reviewed via the EMR. ASSESSMENT: 1. Acute exacerbation of chronic obstructive pulmonary disease with possible community acquired pneumonia. The patient is on aggressive pulmonary hygiene and has been on parenteral antibiotics. She will be switched to oral antibiotics this evening. 2. Acute on chronic congestive heart failure with elevated BNP. The patient has no formal diagnosis of congestive heart failure and there is no echocardiogram available for review. She had a BNP of over 5,000 on admission. 3. Acute on chronic kidney disease with mild exacerbation, probably prerenal azotemia due to dehydration from intravascular dehydration showing slight improvement with fluids and diuresis. 4. Acute mental status change possibly due to mild dehydration. COPD exacerbation is now close to her baseline status. 5. Electrolyte imbalance that is improving. 6. History of hypertension. 7. History of polymyalgia rheumatica. PLAN: We will continue present supportive care. At this point I have switched all of her IV antibiotics as well as her Lasix over to oral medications. Her Rocephin will be changed to Cefdinir. If she continues to improve based on her clinical presentation tomorrow as well as lab and x-ray, hopefully she can be discharged tomorrow or the next day with close followup with her primary care physician, Dr. Rai. I have ordered routine lab as well as a chest x-ray for in the morning. Will continue to follow closely and treat as needed. #[id number] [facility]
[2018-11-08] MEDS: MORPHINE SULFATE INJ 10 MG/ML VIAL IV PRN (23:38)
[2018-11-09] MEDS ORDERED: TEMAZEPAM 15 MG CAP PO ONE (01:08)
[2018-11-09] MEDS: OMEPRAZOLE CAP 20 MG CAP PO SCH (06:05)
--- NOTE | 2018-11-09 07:46 | RAD ---
EXAM DESCRIPTION: Chest,1 View CLINICAL HISTORY: 88 years Female copd,chf COMPARISON: Portable chest 11/07/2018 TECHNIQUE: A single frontal projection of the chest is obtained. FINDINGS: Heart: Allowing for magnification factors related to AP portable technique and large body habitus , the heart is mildly to moderately enlarged. A left subclavian dual-lead transvenous pacemaker is in place with leads terminating in the right atrium and right ventricle. Vasculature: There is mild tortuosity and severe atherosclerosis of the thoracic aorta. The pulmonary vascularity is normal. Mediastinum: Unremarkable otherwise. No evidence of mass or adenopathy. Lungs: There is diffuse interstitial prominence. There is patchy alveolar opacification in the right lower lung which has developed in the interim. Left retrocardiac density which obscures the medial aspect of the left hemidiaphragm appears similar and also concerning for atelectasis and/or pneumonia. [] Pleural spaces: There are no pleural effusions. There are no pneumothoraces. Osseous structures: There is no evidence of acute fracture, osseous destruction or osteoblastic lesions. There is severe narrowing of the right acromiohumeral space with superior migration of the humeral head relative to the glenoid fossa which is consistent with rotator cuff degeneration. [] Tubes and catheters: None. Upper abdomen: No acute findings. [] IMPRESSION: Nonspecific interstitial prominence may be acute or chronic as from interstitial edema or an acute lower respiratory tract viral illness versus fibrosis. There is patchy alveolar opacification in the right lower lung which has developed in the interim and is concerning for atelectasis and/or pneumonia.. Left retrocardiac density which obscures the medial aspect of the left hemidiaphragm appears similar and also concerning for atelectasis and/or pneumonia. [] Remainder of findings as described above. Electronically signed by: Aleida Pan MD 11/09/2018 7:45 AM [employer] ADMINISTRATOR
[2018-11-09] MEDS: IPRATROPIUM/ALBUTEROL 3 ML VIAL INH SCH ×4 (08:22→20:15)
[2018-11-09] MEDS: MONTELUKAST 10 MG TAB PO SCH (08:33)
[2018-11-09] MEDS: RAMIPRIL 5 MG CAP PO SCH (08:33)
[2018-11-09] MEDS: POTASSIUM CHLORIDE 10 MEQ TAB PO SCH (08:33)
[2018-11-09] MEDS: FUROSEMIDE 40 MG TAB PO SCH ×2 (08:34→16:44)
[2018-11-09] MEDS: NON-FORMULARY MEDICATION 1 EA MIS (Desvenlafaxine Succinate [Pristiq] 50 MG) PO SCH (08:34)
[2018-11-09] MEDS: ASPIRIN (CHEWABLE) 81 MG TAB PO SCH (08:34)
[2018-11-09] MEDS: predniSONE 5 MG TAB PO SCH (08:34)
[2018-11-09] MEDS: METOPROLOL SUCCINATE XL 25 MG TAB PO SCH (08:34)
[2018-11-09] MEDS: SODIUM CHLORIDE 0.9% (FLUSH) 10 ML SYG IV SCH ×2 (08:35→20:36)
[2018-11-09] MEDS: ENOXAPARIN SODIUM 40 MG/0.4 ML SYG SUBCU SCH (08:35)
[2018-11-09] MEDS: CEFDINIR 300 MG CAP PO SCH ×2 (08:38→20:36)
[2018-11-09] MEDS: REMOVE OLD PATCH TOP SCH (09:27)
--- NOTE | 2018-11-09 13:45 | PN ---
SUPERVISING PHYSICIAN: Bruce Rai MD DATE: 11/09/18 SUBJECTIVE: The patient is lying in her bed. Her son is at the bedside. We discussed her discharge possibly today or tomorrow. The son was quite concerned because he is her main lean manufacturing specialist and he has no help until tomorrow morning. He has been ill with the flu. Ms. Santiago denied any shortness of breath, nausea or vomiting. She is somewhat confused today. OBJECTIVE: VITAL SIGNS: Temperature 97.8. Heart rate 76. Blood pressure 147/82. Respiratory rate 20. O2 saturation 96% on 1 liter nasal cannula. RESPIRATORY: Diminished at the bases, otherwise a few scattered crackles throughout. No wheezing noted. She is slightly tachypneic at times. CARDIAC: Regular rate and rhythm. GASTROINTESTINAL: Abdomen is soft, nondistended, nontender. No splenomegaly or hepatomegaly. NEUROLOGIC: Awake, alert and oriented to person only. LABORATORY: Electrolytes are basically within normal limits. Creatinine is still elevated at 1.9 with BUN 58. WBCs 10.1, hemoglobin 10.6, hematocrit 33.4. Normal differential on her CBC. Chest x-ray shows nonspecific interstitial prominence, may be acute or chronic, from interstitial edema or an acute lower respiratory tract viral illness versus fibrosis. There is also patchy alveolar opacification in the right lower lung which has developed in the interim and is concerning for atelectasis and/or pneumonia. Left retrocardiac density which obscures the medial aspect of the left hemidiaphragm appears similar and also concerning for atelectasis or pneumonia. All other labs and films have been reviewed via the EMR. ASSESSMENT: 1. Acute exacerbation of chronic obstructive pulmonary disease and most likely community acquired pneumonia. She was switched to oral antibiotics yesterday and her chest x-ray is still concerning for pneumonia. 2. Acute on chronic congestive heart failure with elevated BNP. The patient has no formal diagnosis of congestive heart failure and there is no echocardiogram available for review. She had a BNP of over 5,000 on admission. 3. Acute on chronic kidney disease with mild exacerbation, probably prerenal azotemia due to dehydration from intravascular dehydration showing slight improvement with fluids and diuresis. 4. Acute mental status change possibly due to mild dehydration. Chronic obstructive pulmonary disease exacerbation is now close to her baseline status. 5. Electrolyte imbalance that is improving. 6. History of hypertension. 7. History of polymyalgia rheumatica. PLAN: We will continue present supportive care including good pulmonary hygiene. I will repeat her CMP tomorrow and her CBC as well as order another chest x-ray. Clinically, she is much improved, but I am somewhat concerned with her x-ray at this time, also with her caregiver having recent influenza type illness, she may be too immunocompromised to go home at this time, but we will monitor closely and hopefully she can discharge tomorrow. We will continue to monitor the patient closely and follow as needed. #[id number] [facility] HOSPITALMargarita
[2018-11-09] MEDS ORDERED: ALPRAZolam 0.25 MG TAB PO PRN (18:28)
[2018-11-09] MEDS ORDERED: HALOPERIDOL LACTATE INJ 5 MG/ML VIAL IM PRN (18:28)
[2018-11-09] MEDS: ATORVASTATIN 20 MG TAB PO SCH (20:36)
[2018-11-09] MEDS: busPIRone HCL 5 MG TAB PO SCH (20:36)
[2018-11-09] MEDS: NITROGLYCERIN 0.4 MG/HR PATCH TOP SCH (20:36)
[2018-11-09] MEDS: IV SET AND CAP CHANGE INJ INJ SCH (20:36)
[2018-11-09] MEDS: ALPRAZolam 0.25 MG TAB PO SCH (20:36)
[2018-11-09] MEDS: AZITHROMYCIN 250 MG TAB PO SCH (20:37)
[2018-11-10] MEDS: OMEPRAZOLE CAP 20 MG CAP PO SCH (06:19)
[2018-11-10] MEDS: predniSONE 5 MG TAB PO SCH (08:00)
[2018-11-10] MEDS: ASPIRIN (CHEWABLE) 81 MG TAB PO SCH (08:00)
[2018-11-10] MEDS: CEFDINIR 300 MG CAP PO SCH (08:00)
[2018-11-10] MEDS: POTASSIUM CHLORIDE 10 MEQ TAB PO SCH (08:00)
[2018-11-10] MEDS: MONTELUKAST 10 MG TAB PO SCH (08:00)
[2018-11-10] MEDS: METOPROLOL SUCCINATE XL 25 MG TAB PO SCH (08:00)
[2018-11-10] MEDS: RAMIPRIL 5 MG CAP PO SCH (08:01)
[2018-11-10] MEDS: FUROSEMIDE 40 MG TAB PO SCH (08:01)
[2018-11-10] MEDS: NON-FORMULARY MEDICATION 1 EA MIS (Desvenlafaxine Succinate [Pristiq] 50 MG) PO SCH (08:05)
[2018-11-10] MEDS: IPRATROPIUM/ALBUTEROL 3 ML VIAL INH SCH ×2 (08:50→13:00)
[2018-11-10] MEDS: ENOXAPARIN SODIUM 40 MG/0.4 ML SYG SUBCU SCH (09:06)
[2018-11-10] MEDS: SODIUM CHLORIDE 0.9% (FLUSH) 10 ML SYG IV SCH (09:07)
[2018-11-10 10:48] VITALS: BP 120/80; TEMP 98; O2SAT 95
[2018-11-10] MEDS ORDERED: AZITHROMYCIN 250 MG TAB PO ONE ×2 (11:42→12:00)
[2018-11-10] MEDS: REMOVE OLD PATCH TOP SCH (11:56)
--- NOTE | 2018-11-10 20:33 | DS ---
SUPERVISING PHYSICIAN: Pradeep Rai M.D. DISCHARGE DIAGNOSIS: 1. Acute exacerbation of chronic obstructive pulmonary disease and most likely community acquired pneumonia. She was switched to oral antibiotics yesterday and her chest x-ray is still concerning for pneumonia. 2. Acute on chronic congestive heart failure with elevated BNP. The patient has no formal diagnosis of congestive heart failure and there is no echocardiogram available for review. She had a BNP of over 5,000 on admission. 3. Acute on chronic kidney disease with mild exacerbation, probably prerenal azotemia due to dehydration from intravascular dehydration showing slight improvement with fluids and diuresis. 4. Acute mental status change possibly due to mild dehydration. Chronic obstructive pulmonary disease exacerbation is now close to her baseline status. 5. Electrolyte imbalance that is improving. 6. History of hypertension. 7. History of polymyalgia rheumatica. HISTORY OF PRESENT ILLNESS: This is an 88-year-old female patient who lives at home and her son takes care of her. She was brought to the Emergency Department by EMS for acute mental status changes. Her son reported that she had not been making any sense and was having nonsensical conversations. When EMS picked her up, EMS felt that she was close to her normal baseline status as they are very familiar with this patient. In the Emergency Room, her laboratory studies were completed showing white count 7,300 with a left shift. Blood gas analysis showed pH 7.37, pO2 111, pCO2 40, bicarb 22.6. Chemistries showed an elevated potassium of 5.4, sodium 134, BUN elevated at 56, creatinine 2.03. Liver functions were within normal limits. Troponin 0.05, but her BNP was greater than 5000. TSH elevated at 5.61. Urinalysis showed greater than 300 protein, small amount of blood, small amount of bilirubin with 3 to 5 RBCs, 1 to 3 WBCs, 5 to 10 epithelials with no bacteria seen on microscopic exam. She had a chest x-ray that showed bibasilar patchy opacities representing atelectasis, scarring or pneumonia. The cardiac silhouette was noted to be enlarged. She also had a CT of the head without contrast that showed no intracranial abnormality. She was admitted to the hospital for exacerbation of congestive heart failure with acute mental status changes and concerns for developing community acquired pneumonia. She was given 60 mg of Lasix in the Emergency Room with a Cabrera catheter in place and was admitted to the hospital. HOSPITAL COURSE: There was no echocardiogram and a formal diagnosis was through her past medical history. She was given 60 mg of Lasix in the E. R. It was continued with 40 mg b.i.d. She was placed on fluid restrictions. She also had a Nitro patch to assist with some of her hypertension and to decrease the right sided pressures. Her home medications were resumed. She also was started on antibiotics of azithromycin and Rocephin with aggressive pulmonary hygiene including DuoNeb treatments. Over the next few days she continued to have some confusion but she slowly improved clinically. Her Lasix was transitioned over to oral medications. Her Rocephin was changed to Cefdinir and her azithromycin was changed to p.o. She continued with good pulmonary hygiene. It is to be noted that the patient did remain confused at times. Today, she will be discharged home in stable condition. LABORATORY: White count remained stable and was between 7,300 and 10,100. H&H was stable, on admission was 12.6 and 39.5, and at the end of her hospital stay was 10.6 and 33.4. She did have a left shift initially on her CBC but it is now normalized. Electrolytes on the 24th were within normal limits with BUN 58 and creatinine 1.9. It is to be noted her AST was slightly high at 46. RADIOLOGY: Chest x-ray prior to discharge showed nonspecific interstitial prominence that may be acute or chronic that is from interstitial edema or acute lower respiratory tract viral illness versus fibrosis. There is patchy alveolar opacification of the right lower lung which has developed in the interim. This is concerning for atelectasis and/or pneumonia. Left retrocardiac density obscures the medial aspect of the left hemidiaphragm appears similar and also concerning for atelectasis and/or pneumonia. DISCHARGE PLAN: The patient will be discharged home in stable condition. She has completed her azithromycin in the hospital and she has been discharged on 6 days of Cefdinir. Because there is no formal diagnosis of congestive heart failure on our records, if she has not had an echocardiogram in the last 2 years it is recommended that she have an echocardiogram done. She will continue on her Furosemide 40 mg b.i.d. She is on a beta jazmín and an Kenny inhibitor. She is to followup with her primary care physician, Dr. Isaac Rai, in the next 1 to 2 weeks. She is to return to the hospital or call Dr. Rai's office for any problems or complications. She will have [facility] as well as [facility]. She is being discharged with her Cabrera catheter. They have been called and informed to do bladder training and to discontinue the Carbera catheter at home. DISCHARGE MEDICATIONS: 1. Aspirin. 2. Omeprazole. 3. Buspirone. 4. Potassium chloride. 5. Xanax. 6. Singulair. 7. Lipitor. 8. Metoprolol. 9. Ramipril. 10. Furosemide. 11. Prednisone. 12. Pristiq. 13. Cefdinir. 14. Non-formulary medication. #[id number] [facility]
== END 2018-11-10 13:15 | disposition home health service (06) | DRG 291 ==
LOC: ER 17:47 → MS 21:49
PROVIDERS: ADMIT Nurse Practitioner Family; ATTEND Nurse Practitioner Family
DX: I13.0 Hypertensive heart and chronic kidney disease with heart failure and stage 1 through stage 4 chronic kidney disease, or unspecified chronic kidney disease (principal); J18.9 Pneumonia, unspecified organism; J44.1 Chronic obstructive pulmonary disease with (acute) exacerbation; N17.9 Acute kidney failure, unspecified; E87.1 Hypo-osmolality and hyponatremia; J44.0 Chronic obstructive pulmonary disease with (acute) lower respiratory infection; I50.9 Heart failure, unspecified; N18.9 Chronic kidney disease, unspecified; E86.0 Dehydration; K21.9 Gastro-esophageal reflux disease without esophagitis; M35.3 Polymyalgia rheumatica; G30.9 Alzheimer's disease, unspecified; E87.5 Hyperkalemia; F02.80 Dementia in other diseases classified elsewhere, unspecified severity, without behavioral disturbance, psychotic disturbance, mood disturbance, and anxiety; Z79.82 Long term (current) use of aspirin

== ENCOUNTER → 2018-11-29 | Outpatient (CLI) | payer MEDICARE | LOC: GT 15:13 | PROVIDERS: ATTEND Internal Medicine | DX: R68.89 Other general symptoms and signs (principal); N39.0 Urinary tract infection, site not specified ==

== ENCOUNTER 2018-12-11 18:06 | Emergency (ER) | payer MEDICARE ==
--- NOTE | 2018-12-11 18:43 | CT ---
EXAM DESCRIPTION: Head CLINICAL HISTORY: ALTERED MENTAL; HX OF STROKE COMPARISON: 11/06/2018 TECHNIQUE: Contiguous axial CT images of the head were obtained. Coronal reconstructions were created from the axial data. This exam was performed according to our departmental dose-optimization program, which includes automated exposure control, adjustment of the mA and/or kV according to patient size and/or use of iterative reconstruction technique. FINDINGS: Again seen are intracranial vascular calcifications. Apparent increased attenuation of the basilar artery is likely related to streak artifact, due to patient motion. Poorly defined foci of decreased attenuation do not exert significant mass effect on surrounding structures and are likely sequela of prior insult, most likely on the basis of small vessel disease. These findings appear unchanged. There is no evidence of acute mass, mass effect, midline shift or hemorrhage. The ventricles and extra-axial CSF spaces are unremarkable. The brain parenchyma appears otherwise normal for the patient's age. No acute abnormalities of the bones is seen. IMPRESSION: No acute intracranial abnormality. Electronically signed by: Bucky Kc 12/11/2018 6:39 PM [facility]
[2018-12-11] MEDS ORDERED: MAGNESIUM SULFATE PREMIX 4GM 4 GM in PREMIX BAG 1 BAG IVPB ONE (18:59)
[2018-12-11] MEDS ORDERED: FUROSEMIDE INJ 40 MG/4 ML VIAL IV ONE (19:00)
--- NOTE | 2018-12-11 19:16 | RAD ---
EXAM DESCRIPTION: Chest,1 View CLINICAL HISTORY: ams COMPARISON: 11/09/2018 FINDINGS: Cardiac silhouette is mildly enlarged. There is atelectasis at both lung bases with bibasilar consolidations and small bilateral pleural effusions. There is extensive aortic calcification. Cardiac device and leads are again seen. IMPRESSION: Worsening bilateral consolidations and pleural effusions. Electronically signed by: Bucky Kc 12/11/2018 7:13 PM TURPENTINE DIST[employer]ER
--- NOTE | 2018-12-11 19:24 | RAD ---
EXAM DESCRIPTION: Forearm,Right CLINICAL HISTORY: 88 years Female, pain, swelling, fall COMPARISON: None. FINDINGS: Right forearm 2 views Chronic deformity of the distal radius. Radiocarpal and distal radioulnar degenerative changes. No fracture or dislocation. Soft tissues are unremarkable. IMPRESSION: No acute abnormality. Electronically signed by: Ricardo Shanks MD 12/11/2018 7:21 PM [employer]PERVISOR [employer]
--- NOTE | 2018-12-11 19:27 | RAD ---
EXAM DESCRIPTION: Humerus,Right CLINICAL HISTORY: 88 years Female, pain, swelling, fall COMPARISON: None. 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 Soft tissues are unremarkable. IMPRESSION: No acute abnormality. Electronically signed by: Ricardo Shanks MD 12/11/2018 7:24 PM DROSSER
[2018-12-11] MEDS ORDERED: MAGNESIUM SULFATE PREMIX 4GM 50 ML IVPB ONE (19:32)
[2018-12-11] MEDS ORDERED: cefTRIAXone SODIUM 1 GM in SODIUM CHL 0.9% 50ML MIN-BAG+ 50 ML IVPB ONE (20:37)
--- NOTE | 2018-12-11 21:00 | ED.PDOC ---
History of Present Illness - General Chief Complaint: Neuro Symptoms/Deficits Stated Complaint: altered mental status Time Seen by Provider: 12/11/18 18:11 Source: patient, family Exam Limitations: clinical condition - History of Present Illness Initial Comments: The patient is a 88-year-old female presenting to the emergency room from the senior care secondary to what appeared to be seizure activity. no history of any epilepsy in the past. The seizure activity lasted 3-5 minutes according to her son who sought. The patient did have a postictal period that lasted approximately 15-20 minutes. The patient did have another seizure here lasted 2-3 minutes that appeared to start as a partial seizure with secondary generalization. The patient did fall and hit her head accidentally yesterday. She does have a scalp hematoma on the right. She has had something of a headache from it. The patient does have some dementia and is a poor historian. The patient also has very significant anasarca. She does apparently have a history of CHF and does have a pacemaker in place. She is apparently followed with Dr. Palma. Her primary care doctor has apparently been trying to diurese her with oral medications over the last month however the anasarca is only getting worse. She does have a history of chronic renal insufficiency and on at least a spot urine she does appear to have significant proteinuria. No obvious fevers. No respiratory distress but the patient does desaturate down to 86% on room air. It does not appear that she was on oxygen when she had the initial seizure but she was on oxygen and saturating well when she had the second one. No new focal neurological deficits. She does have a history of recurrent falls. She also has a history of polymyalgia rheumatica, COPD, recurrent pneumonias, recurrent urinary tract infections as well as anemia and depression. Aside from the hypoxia on room air the patient's vital signs are remaining stable and she is slightly hypertensive. Glucose was 115 by EMS check and 116 on repeat here. Timing/Duration: unsure Severity: severe Improving Factors: nothing Worsening Factors: nothing Associated Symptoms: headaches, malaise, shortness of breath, weakness Allergies/Adverse Reactions: Allergies NO KNOWN ALLERGY Allergy (Verified 11/06/18 18:09) Home Medications: Ambulatory Orders Aspirin [Baby Aspirin] 81 mg PO QD 07/23/14 Buspirone HCl 10 mg PO BEDTIME 09/14/15 Omeprazole 20 mg PO DAILY 09/14/15 Potassium Chloride [Micro-K] 10 meq PO DAILY 12/02/15 ALPRAZolam [Xanax] 0.25 mg PO BEDTIME 12/06/17 Atorvastatin Calcium [Lipitor] 20 mg PO BEDTIME 12/06/17 Metoprolol Succinate [Metoprolol Succinate ER] 25 mg PO DAILY 12/06/17 Montelukast [Singulair] 10 mg PO DAILY 12/06/17 Ramipril 10 mg PO QAM 12/06/17 Furosemide [Lasix] 40 mg PO BID 10/06/18 Non-Formulary Medication 50 mg PO DAILY 10/06/18 Prednisone 5 mg PO DAILY 10/06/18 Desvenlafaxine Succinate [Pristiq] 50 mg PO DAILY 11/06/18 Cefdinir [Omnicef] 300 mg PO BID #10 cap 11/10/18 Review of Systems - Review of Systems Constitutional: States: malaise, weakness - generalized EENTM: States: no symptoms reported Respiratory: States: short of breath - ith activity Cardiology: States: edema Gastrointestinal/Abdominal: States: no symptoms reported Genitourinary: States: no symptoms reported Musculoskeletal: States: see HPI Skin: States: see HPI Neurological: States: see HPI Endocrine: States: no symptoms reported All other Systems: No Change from Baseline Past Medical History (General) - Patient Medical History Hx Seizures: No Hx Stroke: Yes Hx Dementia: No Hx Asthma: No Hx of COPD: No Hx Cardiac Disorders: Yes Hx Congestive Heart Failure: Yes Hx Pacemaker: No Hx Hypertension: No Hx Thyroid Disease: No Hx Diabetes: Yes Hx Gastroesophageal Reflux: Yes Hx Renal Disease: No Hx Cancer: No Hx of HIV: No Hx Hepatitis C: No Hx MRSA: No Surgical History: cholecystectomy, pacemaker, Hysterectomy - Vaccination History Hx Tetanus, Diphtheria Vaccination: Yes Hx Influenza Vaccination: No Hx Pneumococcal Vaccination: Yes - Social History Hx Tobacco Use: No Hx Chewing Tobacco Use: No Hx Alcohol Use: No Hx Substance Use: No Hx Substance Use Treatment: No Hx Depression: No Hx Physical Abuse: No Hx Emotional Abuse: No Hx Suspected Abuse: No - Activities of Daily Living Fdc/Assisted Living (if applicable):: [place] - Female History Patient : No Family Medical History - Family History Mother Living Status: Hx Family Cancer: Yes Physical Exam - Physical Exam General Appearance: Frail, Lethargic Eye Exam: bilateral normal Ears, Nose, Throat: hearing grossly normal, normal pharynx Neck: full range of motion, supple Respiratory: chest non-tender, no respiratory distress, other - ild bibasilar rales. Cardiovascular/Chest: normal peripheral pulses, no edema, other - egular rate. The patient does have a pacemaker. Peripheral Pulses: radial,right: 2+, radial,left: 2+, dorsalis pedis,right: 2+, dorsalis pedis,left: 2+ Gastrointestinal/Abdominal: non tender, soft Rectal Exam: deferred Back Exam: no CVA tenderness, no vertebral tenderness Extremity: normal range of motion, no calf tenderness, normal capillary refill, pedal edema, other - the patient does have some right elbow discomfort palpation but passive and active range of motion are preserved. Neurologic: other - the patient is drowsy but is arousable to voice. She recognizes her family members and she knows that she is in the [place] [facility]. She does have some mild chronic hearing loss. She does move all extremities fairly well. Skin Exam: normal color Comments: Vital Signs - 24 hr 12/11/18 12/11/18 18:15 20:35 Temperature 96.3 F L Pulse Rate [ 66 60 left brachial] Respiratory 20 15 Rate Blood Pressure 174/116 174/60 [left brachial] O2 Sat by Pulse 98 86 L Oximetry Progress - Progress Progress: 12/11/18 21:04 the patient is an 88-year-old female presenting to the emergency room primarily due to new onset seizure activity. The source of this is not entirely certain however mild hypoxia as well as the head injury from yesterday may have contributed. Additionally she does have a mildly low magnesium. She is receiving a dose of magnesium here currently. She also received 1 dose of 2 mg of Ativan for the seizure that was witnessed here. the seizure did generalize and turn into a tonic clonic seizure. She is resting comfortably currently. The patient also has very severe anasarca that has been refractory to oral diuresis over the last month. She does have a markedly elevated BNP. She does see Dr. Palma. She has had a Cabrera catheter placed and has received a dose of IV Lasix here. additionally the patient does have significant proteinuria as well as a low albumin which may be contributing to the edema. It is unknown if she is ever seen nephrology in the past. She does appear to have a small urinary tract infection as well and did receive a dose of Rocephin here. Urine is being cultured. Additionally the patient does have a borderline troponin. She has had borderline troponins in the past. No evidence of any chest pain. No obvious acute changes on the EKG compared to previous. Repeat cardiac enzymes would be warranted on the patient upon arrival, though this is likely low yield. The patient is chest pain-free. No evidence of other arrhythmia has been noted on telemetry monitoring. no focal neurological deficits at this time the patient is drowsy from the Ativan. Obviously if patient develops new neurological deficits or worsening condition in general than repeat CT scan of the head may be warranted as initial small ischemic stroke may be missed on initial scanning. Transferred for higher level of care for likely cardiology, neurology and nephrology consultations. Family is on board with this plan of action. 12/11/18 21:11 - Results/Orders Results/Orders: 12/11/18 18:14 Telemetry .CONTINUOUS Vital Signs-Tilt PRN 12/11/18 18:15 EKG STAT EKG actually shows what appears to be a first-degree degree A-V block with ventricular pacing. She doesn't have at least J-point elevation in anterior leads which is not new when compared to previous EKGs. She does have T-wave inversions in V5 and V6 which is also not new. This appears to be a sinus rhythm. Difficult to interpret further. Laboratory Results - last 24 hr 12/11/18 12/11/18 12/11/18 17:50 17:50 17:50 WBC 12.7 H RBC 4.32 Hgb 12.9 Hct 40.4 MCV 93.6 MCH 29.8 MCHC 31.9 L RDW 15.5 H Plt Count 188 MPV 8.3 Absolute Neuts (auto) 9.90 H Absolute Lymphs (auto) 1.50 Absolute Monos (auto) 1.10 H Absolute Eos (auto) 0.20 Absolute Basos (auto) 0.10 Neutrophils % 78.2 H Lymphocytes % 11.5 L Monocytes % 8.4 Eosinophils % 1.3 Basophils % 0.6 PT 14.7 H INR 1.48 H PTT (SP) 25.1 Sodium 135 Potassium 5.0 Chloride 105 Carbon Dioxide 22 Anion Gap 13.0 BUN 52 H Creatinine 1.66 H BUN/Creatinine Ratio 31.3 H Random Glucose 109 H Serum Osmolality 284.7 Lactic Acid Calcium 8.2 L Magnesium 1.4 L Total Bilirubin 0.9 AST 25 ALT 14 Alkaline Phosphatase 62 Creatine Kinase 41 CK-MB (CK-2) 7.3 H* CK-MB (CK-2) % Troponin I 0.08 H* B-Natriuretic Peptide > 5000.0 H* Serum Total Protein 5.4 L Albumin 2.5 L Globulin 2.9 Albumin/Globulin Ratio 0.9 L Urine Color Urine Appearance Urine pH Ur Specific [place] Urine Protein Urine Glucose (UA) Urine Ketones Urine Blood Urine Nitrite Urine Bilirubin Urine Urobilinogen Ur Leukocyte Esterase Urine RBC Urine WBC Ur Epithelial Cells Urine Bacteria 12/11/18 12/11/18 17:50 19:32 WBC RBC Hgb Hct MCV MCH MCHC RDW Plt Count MPV Absolute Neuts (auto) Absolute Lymphs (auto) Absolute Monos (auto) Absolute Eos (auto) Absolute Basos (auto) Neutrophils % Lymphocytes % Monocytes % Eosinophils % Basophils % PT INR PTT (SP) Sodium Potassium Chloride Carbon Dioxide Anion Gap BUN Creatinine BUN/Creatinine Ratio Random Glucose Serum Osmolality Lactic Acid 1.8 Calcium Magnesium Total Bilirubin AST ALT Alkaline Phosphatase Creatine Kinase CK-MB (CK-2) CK-MB (CK-2) % Troponin I B-Natriuretic Peptide Serum Total Protein Albumin Globulin Albumin/Globulin Ratio Urine Color Yellow Urine Appearance Sl cloudy Urine pH 5.0 Ur Specific [place] 1.025 Urine Protein >=300 H Urine Glucose (UA) Negative Urine Ketones Negative Urine Blood Small H Urine Nitrite Negative Urine Bilirubin Negative Urine Urobilinogen 0.2 Ur Leukocyte Esterase Small H Urine RBC 5-10 H Urine WBC 5-10 H Ur Epithelial Cells 1-3 Urine Bacteria 2+ H x-ray of the right upper extremity shows no evidence of any fracture or dislocation. Chest x-ray shows atelectasis in bilateral lungs as well as small pleural effusions and cardiomegaly CT scan of the head shows no definitive acute pathology. She does have multiple chronic changes. There is basilar artery discrepancy thatis most likely attributable to motion. Departure - Departure Clinical Impression: New onset seizure, Hypoalbuminemia, Cystitis CHF exacerbation Qualifiers: Heart failure type: combined systolic and diastolic Qualified Code(s): I50.43 - Acute on chronic combined systolic (congestive) and diastolic (congestive) heart failure Proteinuria Qualifiers: Proteinuria type: unspecified Qualified Code(s): R80.9 - Proteinuria, unspecified Chronic renal insufficiency Qualifiers: Chronic kidney disease stage: stage 3 (moderate) Qualified Code(s): N18.3 - Chronic kidney disease, stage 3 (moderate) Disposition: Transfer to Hospital Departure Forms: ED Discharge - Pt. Copy, Patient Portal Self Enrollment Referrals: YANCY REID MD [Primary Care Provider] - 1-2 Weeks Home Medications: Ambulatory Orders Aspirin [Baby Aspirin] 81 mg PO QD 07/23/14 Buspirone HCl 10 mg PO BEDTIME 09/14/15 Omeprazole 20 mg PO DAILY 09/14/15 Potassium Chloride [Micro-K] 10 meq PO DAILY 12/02/15 ALPRAZolam [Xanax] 0.25 mg PO BEDTIME 12/06/17 Atorvastatin Calcium [Lipitor] 20 mg PO BEDTIME 12/06/17 Metoprolol Succinate [Metoprolol Succinate ER] 25 mg PO DAILY 12/06/17 Montelukast [Singulair] 10 mg PO DAILY 12/06/17 Ramipril 10 mg PO QAM 12/06/17 Furosemide [Lasix] 40 mg PO BID 10/06/18 Non-Formulary Medication 50 mg PO DAILY 10/06/18 Prednisone 5 mg PO DAILY 10/06/18 Desvenlafaxine Succinate [Pristiq] 50 mg PO DAILY 11/06/18 Cefdinir [Omnicef] 300 mg PO BID #10 cap 11/10/18 Transfer to Outside Facility - Transfer Information Accepting Provider:: dr jones Accepting Facility: [facility] Reason for Transfer: required specialist not available
[2018-12-11] MEDS ORDERED: SODIUM CHL 0.9% 50ML MIN-BAG+ 50 ML IVPB ONE (21:04)
[2018-12-11] MEDS ORDERED: cefTRIAXone SODIUM 1 GM VIAL ONE (21:04)
[2018-12-11] MEDS ORDERED: methylPREDNISolone SODIUM SUC 125 MG/2 ML VIAL ONE (21:08)
[2018-12-11] MEDS: predniSONE 20 MG TAB PO ONE ×2 (21:08→21:14)
[2018-12-11] MEDS ORDERED: methylPREDNISolone SODIUM SUC 125 MG/2 ML VIAL IV ONE (21:15)
[2018-12-11 21:26] VITALS: BP 191/74; O2SAT 99
[2018-12-11 22:28] VITALS: TEMP 98.1
== END 2018-12-11 21:50 | disposition short-term general hospital (02) ==
LOC: ER 18:06
DX: R56.9 Unspecified convulsions (principal); E88.09 Other disorders of plasma-protein metabolism, not elsewhere classified; N30.90 Cystitis, unspecified without hematuria; I50.43 Acute on chronic combined systolic (congestive) and diastolic (congestive) heart failure; R80.9 Proteinuria, unspecified; N18.3 Chronic kidney disease, stage 3 (moderate); R41.82 Altered mental status, unspecified; S00.03XA Contusion of scalp, initial encounter; F03.90 Unspecified dementia, unspecified severity, without behavioral disturbance, psychotic disturbance, mood disturbance, and anxiety; I50.9 Heart failure, unspecified; J44.9 Chronic obstructive pulmonary disease, unspecified; M06.9 Rheumatoid arthritis, unspecified; F32.9 Major depressive disorder, single episode, unspecified; E11.22 Type 2 diabetes mellitus with diabetic chronic kidney disease; K21.9 Gastro-esophageal reflux disease without esophagitis; Z87.01 Personal history of pneumonia (recurrent); Z95.0 Presence of cardiac pacemaker; Z79.899 Other long term (current) drug therapy; Z86.73 Personal history of transient ischemic attack (TIA), and cerebral infarction without residual deficits; Z79.82 Long term (current) use of aspirin; W19.XXXA Unspecified fall, initial encounter
CPT/HCPCS: 36415; 70450; 71045; 73060; 73090; 80053; 81001; 82550; 82553; 83605; 83735; 83880; 84484; 85025; 85610; 85730; 87086; 93005; J0696; J1940; J2060; J2930; J3475; J7050

== ENCOUNTER 2018-12-28 02:07 | Emergency (ER) | payer MEDICARE ==
[2018-12-28] MEDS ORDERED: SODIUM CHLORIDE 0.9% 1000ML 1,000 ML IVS ONE ×2 (02:38→03:15)
[2018-12-28] MEDS ORDERED: PIPERACILLIN/TAZOBACTAM 3.375 GM in SODIUM CHLORIDE 0.9% 100ML 100 ML IVPB ONE (02:40)
[2018-12-28] MEDS ORDERED: AZTREONAM 1 GM in SODIUM CHL 0.9% 50ML MIN-BAG+ 50 ML IVPB ONE (02:40)
--- NOTE | 2018-12-28 02:44 | ED.PDOC ---
History of Present Illness - General Chief Complaint: Neuro Symptoms/Deficits Stated Complaint: altered status, congestion Time Seen by Provider: 12/28/18 02:23 Source: family Exam Limitations: clinical condition - History of Present Illness Initial Comments: Patient's son gives the history. He was called today by [facility] and told that his mother sounded conjested and had a fever. She just got out of [facility] last week for new onset seizures. She has baseline dementia but the son says that she has been asking where family members are who have already passed and asks about a pet that has already passed. He thinks her dementia is a little worse then normal. He doesn't have any other information to add to what he heard from the [facility]. Timing/Duration: unsure Severity: moderate Improving Factors: nothing Worsening Factors: nothing Associated Symptoms: other - as in HPI Allergies/Adverse Reactions: Allergies Tetanus Toxoid Allergy (Verified 12/28/18 05:28) Home Medications: Ambulatory Orders Aspirin [Baby Aspirin] 81 mg PO QD 07/23/14 Buspirone HCl 10 mg PO BEDTIME 09/14/15 Potassium Chloride [Micro-K] 10 meq PO DAILY 12/02/15 ALPRAZolam [Xanax] 0.25 mg PO BEDTIME 12/06/17 Metoprolol Succinate [Metoprolol Succinate ER] 25 mg PO DAILY 12/06/17 Montelukast [Singulair] 10 mg PO DAILY 12/06/17 Ramipril 10 mg PO QAM 12/06/17 Furosemide [Lasix] 40 mg PO BID 10/06/18 Desvenlafaxine Succinate [Pristiq] 50 mg PO DAILY 11/06/18 Acetaminophen [Tylenol] 325 mg PO Q4H PRN 12/28/18 Atorvastatin Calcium [Lipitor] 20 mg PO BEDTIME 12/28/18 Calcitriol 0.25 mcg PO DAILY 12/28/18 Levetiracetam [Keppra] 500 mg PO BEDTIME 12/28/18 Pantoprazole Tablet [Protonix] 40 mg PO BID 12/28/18 Tramadol HCl 50 mg PO Q6H PRN 12/28/18 hydrALAZINE HCl [HydrALAzine HCl] 25 mg PO TID 12/28/18 Review of Systems - Review of Systems Unable to Obtain Due To: clinical condition Past Medical History (General) - Patient Medical History Hx Seizures: No Hx Stroke: Yes Hx Dementia: Yes - alzhiemer's Hx Asthma: No Hx of COPD: Yes Hx Cardiac Disorders: Yes Hx Congestive Heart Failure: Yes Hx Pacemaker: No Hx Hypertension: Yes Hx Thyroid Disease: No Hx Diabetes: Yes Hx Gastroesophageal Reflux: Yes Hx Renal Disease: Yes - CRF Hx Cancer: No Hx of HIV: No Hx Hepatitis C: No Hx MRSA: No - Vaccination History Hx Tetanus, Diphtheria Vaccination: No - allergy Hx Influenza Vaccination: No Hx Pneumococcal Vaccination: Yes - Social History Hx Tobacco Use: No Hx Chewing Tobacco Use: No Hx Alcohol Use: No Hx Substance Use: No Hx Substance Use Treatment: No Hx Depression: No Hx Physical Abuse: No Hx Emotional Abuse: No Hx Suspected Abuse: No - Activities of Daily Living Senior Living/Assisted Living (if applicable):: [place] - Female History Patient : No Family Medical History - Family History Mother Living Status: Hx Family Cancer: Yes Physical Exam - Physical Exam General Appearance: Lethargic Eye Exam: bilateral normal Ears, Nose, Throat: normal ENT inspection Neck: non-tender, full range of motion, supple Respiratory: rales - distant breath sounds with scant inspiratory rales Cardiovascular/Chest: normal peripheral pulses, regular rate, rhythm Gastrointestinal/Abdominal: normal bowel sounds, non tender, soft Neurologic: depressed affect Skin Exam: pallor Lymphatic: no adenopathy Progress - Progress Progress: 12/28/18 06:39 Laboratory Tests 12/28/18 12/28/18 12/28/18 02:36 02:36 02:38 WBC 17.2 H RBC 3.63 L Hgb 10.8 L Hct 33.6 L MCV 92.7 MCH 29.8 MCHC 32.2 L RDW 15.7 H Plt Count 414 H MPV 9.7 Absolute Neuts (auto) 16.30 H Absolute Lymphs (auto) 0.20 L Absolute Monos (auto) 0.60 Absolute Eos (auto) 0.00 Absolute Basos (auto) 0.00 Neutrophils % 94.9 H Lymphocytes % 1.4 L Monocytes % 3.4 Eosinophils % 0.0 L Basophils % 0.3 Sodium 143 Potassium 5.2 H Chloride 107 Carbon Dioxide 20 L Anion Gap 21.2 H BUN 103 H* Creatinine 2.21 H BUN/Creatinine Ratio 46.6 H Random Glucose 257 H Serum Osmolality 326.0 H* Lactic Acid Cancelled Calcium 8.3 L Total Bilirubin 0.9 AST 28 ALT 19 Alkaline Phosphatase 98 Serum Total Protein 6.9 Albumin 2.5 L Globulin 4.4 H Albumin/Globulin Ratio 0.6 L Urine Color Urine Appearance Urine pH Ur Specific [place] Urine Protein Urine Glucose (UA) Urine Ketones Urine Blood Urine Nitrite Urine Bilirubin Urine Urobilinogen Ur Leukocyte Esterase Urine RBC Urine WBC Ur Epithelial Cells Urine Bacteria 12/28/18 12/28/18 02:40 03:16 WBC RBC Hgb Hct MCV MCH MCHC RDW Plt Count MPV Absolute Neuts (auto) Absolute Lymphs (auto) Absolute Monos (auto) Absolute Eos (auto) Absolute Basos (auto) Neutrophils % Lymphocytes % Monocytes % Eosinophils % Basophils % Sodium Potassium Chloride Carbon Dioxide Anion Gap BUN Creatinine BUN/Creatinine Ratio Random Glucose Serum Osmolality Lactic Acid 2.9 H* Calcium Total Bilirubin AST ALT Alkaline Phosphatase Serum Total Protein Albumin Globulin Albumin/Globulin Ratio Urine Color Yellow Urine Appearance Sl cloudy Urine pH 5.0 Ur Specific [place] 1.025 Urine Protein >=300 H Urine Glucose (UA) Negative Urine Ketones Negative Urine Blood Trace-lysed H Urine Nitrite Negative Urine Bilirubin Small H Urine Urobilinogen 0.2 Ur Leukocyte Esterase Small H Urine RBC 1-3 Urine WBC 20-30 H Ur Epithelial Cells 1-3 Urine Bacteria 2+ H Patient's wbc was 17.2 and lactic acid was 3.1. CXR showed right LL pneumonia. She was also positive for influenza. It is not possible to tell at this point if this is a viral pneumonia or if she has nosocomial acquired pneumonia along with influenza A. She was given NS one liter bolus x two with improvement of the lactic acid to 2.9. She showed end organ damage in the kidneys with proteinuria. She was also given Zosyn 3.375 grams IV x one for pseudomonas coverage and Aztreonam 1 gram IV x one for atypicals. Her respirations varied between 26 and 40. She was starting to tire. She was given Duonebs x one and solumedrol. Accepted for transfer to [facility] by Sanam Patiño. She will need ICU. Before transfer it was clear that she was tiring so RSI was performed with 4 mg versed followed by Rocuronium 30 mg IV x one. Intubation successful with #4 ET tube using glidescope. Patient transported by ground to [facility]. Departure - Departure Clinical Impression: Pneumonia, Respiratory distress, Influenza A Disposition: Transfer to Hospital Condition: Serious Departure Forms: ED Discharge - Pt. Copy, Patient Portal Self Enrollment Diet: other - NPO Activity: as per physical therapy Referrals: YANCY REID MD [Primary Care Provider] - 1-2 Weeks Home Medications: Ambulatory Orders Aspirin [Baby Aspirin] 81 mg PO QD 07/23/14 Buspirone HCl 10 mg PO BEDTIME 09/14/15 Potassium Chloride [Micro-K] 10 meq PO DAILY 12/02/15 ALPRAZolam [Xanax] 0.25 mg PO BEDTIME 12/06/17 Metoprolol Succinate [Metoprolol Succinate ER] 25 mg PO DAILY 12/06/17 Montelukast [Singulair] 10 mg PO DAILY 12/06/17 Ramipril 10 mg PO QAM 12/06/17 Furosemide [Lasix] 40 mg PO BID 10/06/18 Desvenlafaxine Succinate [Pristiq] 50 mg PO DAILY 11/06/18 Acetaminophen [Tylenol] 325 mg PO Q4H PRN 12/28/18 Atorvastatin Calcium [Lipitor] 20 mg PO BEDTIME 12/28/18 Calcitriol 0.25 mcg PO DAILY 12/28/18 Levetiracetam [Keppra] 500 mg PO BEDTIME 12/28/18 Pantoprazole Tablet [Protonix] 40 mg PO BID 12/28/18 Tramadol HCl 50 mg PO Q6H PRN 12/28/18 hydrALAZINE HCl [HydrALAzine HCl] 25 mg PO TID 12/28/18
[2018-12-28] MEDS ORDERED: AZTREONAM 1 GM VIAL ONE (02:54)
[2018-12-28] MEDS ORDERED: PIPERACILLIN/TAZOBACTAM 3.375 GM VIAL IVPB ONE (02:54)
[2018-12-28] MEDS ORDERED: SODIUM CHLORIDE 0.9% 100ML 100 ML IVPB ONE (02:55)
[2018-12-28] MEDS ORDERED: SODIUM CHL 0.9% 50ML MIN-BAG+ 50 ML IVPB ONE (02:55)
--- NOTE | 2018-12-28 03:05 | RAD ---
EXAM DESCRIPTION: Chest,1 View CLINICAL HISTORY: 88 years Female, fever COMPARISON: Chest x-ray December 11, 2018 FINDINGS: Cardiac pacer is present. Patchy ill-defined opacities in the right lung noted with a basilar predominance. No pneumothorax. No significant pleural effusion. Cardiac silhouette appears mildly enlarged. Aortic atherosclerosis is present. Osseous structures demonstrate degenerative changes. IMPRESSION: Patchy opacity in the right lung concerning for pneumonia. Electronically signed by: Víctor Corona MD 12/28/2018 3:02 AM CDT
[2018-12-28] MEDS ORDERED: OSELTAMIVIR 75 MG CAP PO ONE (04:08)
[2018-12-28 05:00] VITALS: TEMP 100.1
[2018-12-28] MEDS ORDERED: SODIUM CHLORIDE 0.9% 1000ML 1,000 ML IVS PRN (05:43)
[2018-12-28] MEDS ORDERED: IPRATROPIUM/ALBUTEROL 3 ML VIAL NEB ONE (05:43)
[2018-12-28] MEDS ORDERED: methylPREDNISolone SODIUM SUC 125 MG/2 ML VIAL IV ONE (05:44)
[2018-12-28] MEDS ORDERED: MIDAZOLAM INJ 5 MG/5 ML VIAL ONE (06:17)
[2018-12-28] MEDS ORDERED: VECURONIUM BROMIDE 10 MG VIAL IV ONE (06:17)
[2018-12-28] MEDS ORDERED: ROCURONIUM BROMIDE 10 MG/ML VIAL ONE (06:22)
[2018-12-28] MEDS ORDERED: ROCURONIUM BROMIDE 10 MG/ML VIAL IV ONE (06:28)
[2018-12-28] MEDS ORDERED: MIDAZOLAM INJ 5 MG/5 ML VIAL IV ONE (06:28)
[2018-12-28 06:44] VITALS: BP 126/60
[2018-12-28 07:00] VITALS: O2SAT 96
--- NOTE | 2018-12-28 07:12 | RAD ---
EXAM: Single view chest. INDICATION: Tube placement. COMPARISON: Chest x-ray: 12/28/2018. FINDINGS: The endotracheal tube terminates approximately 2 cm above the doreen. There are worsening right pulmonary airspace opacities. The heart is enlarged with a left chest wall pacemaker in place. Small pleural effusions are likely present. There is no pneumothorax. The bones are demineralized. IMPRESSION: Satisfactory position of the endotracheal tube. Worsening right pulmonary airspace opacities. Electronically signed by: Manuel León MD 12/28/2018 7:09 AM CDT Workstation: [id number]
== END 2018-12-28 07:18 | disposition short-term general hospital (02) ==
LOC: ER 02:07
DX: J18.9 Pneumonia, unspecified organism (principal); R06.03 Acute respiratory distress; J10.1 Influenza due to other identified influenza virus with other respiratory manifestations; F02.80 Dementia in other diseases classified elsewhere, unspecified severity, without behavioral disturbance, psychotic disturbance, mood disturbance, and anxiety; G30.9 Alzheimer's disease, unspecified; J44.9 Chronic obstructive pulmonary disease, unspecified; I50.9 Heart failure, unspecified; E11.22 Type 2 diabetes mellitus with diabetic chronic kidney disease; I13.10 Hypertensive heart and chronic kidney disease without heart failure, with stage 1 through stage 4 chronic kidney disease, or unspecified chronic kidney disease; N18.9 Chronic kidney disease, unspecified; K21.9 Gastro-esophageal reflux disease without esophagitis; Z79.899 Other long term (current) drug therapy; Z79.82 Long term (current) use of aspirin; Z88.7 Allergy status to serum and vaccine
CPT/HCPCS: 31500; 71045; 80053; 81001; 83605; 85025; 87040; 87077; 87086; 87186; 87502; 93005; 94640; 94660; J2250; J2543; J2930; J7030; J7050; J7620